=== PATIENT | male | born 2000 | race Caucasian/White ===

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

== ENCOUNTER 2018-11-07 17:45 | Emergency (ER) | payer OTHER ==
[~2018-11-07] VITALS: Ht 177.8 cm; Wt 68.0 kg
[~2018-11-07 17:45] MED LIST: DIVALPROEX SOD500 M1 PO; OLANZAPINE15 MG PO; SERTRALINE HCL25 MG PO; TRAZODONE HCL50 MG PO
--- OUTSIDE RECORDS SUMMARY | 2018-11-07 17:48 | XMS ---
PreManage Notification: MATHEUS WRIGHT Security Office Automation Technician Events No recent Security Events currently on file CRITERIA MET - Group Notification CARE PROVIDERS EMILE HALL Primary Care Current PHONE: Unknown Jeanie has no Care Guidelines for this patient. EMine VISIT COUNT (12 MO.) 2 [facility] TOTAL 2 NOTE: Visits indicate total known visits. ED/UCC VISIT TRACKING (12 MO.) 11/07/2018 17:45 [facility] [place] TYPE: Emergency COMPLAINT: - MEDICAL CLEARANCE 06/15/2018 09:31 [facility] [place] TYPE: Emergency COMPLAINT: - NAUSEA DIAGNOSES: - Nausea INPATIENT VISIT TRACKING (12 MO.) No inpatient visits to display in this time frame [id number]
== END 2018-11-07 22:32 | disposition home or self-care (01) ==
LOC: ED 17:45
DX: T14.91XA Suicide attempt, initial encounter (principal); F17.200 Nicotine dependence, unspecified, uncomplicated; Z90.49 Acquired absence of other specified parts of digestive tract; Z88.0 Allergy status to penicillin; Z79.899 Other long term (current) drug therapy
CPT/HCPCS: 36415; 80053; 80176; 81001; 84443; 85025; 99284; G0480

== ENCOUNTER 2018-11-13 14:22 | Emergency (ER) | payer OTHER ==
[~2018-11-13] VITALS: Ht 177.8 cm; Wt 68.0 kg
--- OUTSIDE RECORDS SUMMARY | 2018-11-13 14:26 | XMS ---
PreManage Notification: MATHEUS WRIGHT Security Collections Analyst Events No recent Security Events currently on file CRITERIA MET - Group Notification - [facility] - Has Care Guidelines - [facility] - 2 Visits in 30 Days CARE PROVIDERS EMILE HALL Primary Care Current PHONE: Unknown Jeanie has no Care Guidelines for this patient. Care History Medical/Surgical 11/10/2018 [facility] - CHW UNABLE TO CONTACT PATIENT- NO PCP - CHW SENT NO PCP LETTER TO PATIENT. - PLEASE CONTACT CHW AT [phone] IF PATIENT IS SEEN IN THE ED DURING BUSINESS HOURS. IF CHW IS AVAILABLE, CHW WILL MEET WITH PATIENT IN THE ED. E.D. VISIT COUNT (12 MO.) 3 [facility] TOTAL 3 NOTE: Visits indicate total known visits. ED/UCC VISIT TRACKING (12 MO.) 11/13/2018 14:23 [facility] [place] TYPE: Emergency COMPLAINT: - MEDICAL CLEARANCE 11/07/2018 17:45 [facility] [place] TYPE: Emergency COMPLAINT: - MEDICAL CLEARANCE DIAGNOSES: - Suicide attempt, initial encounter - Allergy status to penicillin - Acquired absence of other specified parts of digestive tract - Nicotine dependence, unspecified, uncomplicated - Suicidal ideations - Other assisted (current) drug therapy 06/15/2018 09:31 [facility] [place] TYPE: Emergency COMPLAINT: - NAUSEA DIAGNOSES: - Nausea INPATIENT VISIT TRACKING (12 MO.) No inpatient visits to display in this time frame [id number]
== END 2018-11-13 18:05 | disposition home or self-care (01) ==
LOC: ED 14:22
DX: F32.9 Major depressive disorder, single episode, unspecified (principal); Z90.49 Acquired absence of other specified parts of digestive tract; Z88.0 Allergy status to penicillin
CPT/HCPCS: 80053; 80176; 81001; 85025; 99284; G0480

== ENCOUNTER 2019-01-22 12:40 | Emergency (ER) | payer OTHER ==
[~2019-01-22] VITALS: Ht 177.8 cm; Wt 68.0 kg
--- OUTSIDE RECORDS SUMMARY | 2019-01-22 12:44 | XMS ---
PreManage Notification: MATHEUS WRIGHT Security Railway Switch Operator Events No recent Security Events currently on file CRITERIA MET - Group Notification - [facility] - Has Care Guidelines CARE PROVIDERS EMILE HALL Primary Care Current PHONE: Unknown Jeanie has no Care Guidelines for this patient. Care History Medical/Surgical 11/10/[address] [facility] - CHW UNABLE TO CONTACT PATIENT- NO PCP - CHW SENT NO PCP LETTER TO PATIENT. - PLEASE CONTACT CHW AT [phone] IF PATIENT IS SEEN IN THE ED DURING BUSINESS HOURS. IF CHW IS AVAILABLE, CHW WILL MEET WITH PATIENT IN THE ED. E.D. VISIT COUNT (12 MO.) 4 [facility] TOTAL 4 NOTE: Visits indicate total known visits. ED/UCC VISIT TRACKING (12 MO.) 01/22/2019 12:42 [facility] [place] TYPE: Emergency COMPLAINT: - VOMINTING,BLOOD IN STOOL 11/13/2018 14:23 [facility] [place] TYPE: Emergency COMPLAINT: - MEDICAL CLEARANCE DIAGNOSES: - Acquired absence of other specified parts of digestive tract - Allergy status to penicillin - Major depressive disorder, single episode, unspecified 11/07/2018 17:45 [facility] [place] TYPE: Emergency COMPLAINT: - MEDICAL CLEARANCE DIAGNOSES: - Suicide attempt, initial encounter - Allergy status to penicillin - Acquired absence of other specified parts of digestive tract - Nicotine dependence, unspecified, uncomplicated - Suicidal ideations - 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
[2019-01-22] MEDS ORDERED: PROMETHAZINE HC25 M1 PO (13:15)
== END 2019-01-22 13:22 | disposition home or self-care (01) ==
LOC: ED 12:40
DX: K62.5 Hemorrhage of anus and rectum (principal); F17.200 Nicotine dependence, unspecified, uncomplicated; Z90.49 Acquired absence of other specified parts of digestive tract; Z88.0 Allergy status to penicillin
CPT/HCPCS: 99284

== ENCOUNTER → 2019-02-17 | Emergency (ER) | payer OTHER ==
[~2019-02-17] VITALS: Ht 177.8 cm; Wt 68.0 kg
[~2019-02-17] MED LIST changes: +PROMETHAZINE HC25 M1 PO
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
== END ==
LOC: ED 16:08
DX: Z00.8 Encounter for other general examination (principal); F17.200 Nicotine dependence, unspecified, uncomplicated; Z90.49 Acquired absence of other specified parts of digestive tract; Z88.0 Allergy status to penicillin
CPT/HCPCS: 80053; 80176; 81001; 84443; 85025; 99283; G0480

== ENCOUNTER 2019-02-26 12:43 | Emergency (ER) | payer OTHER ==
[~2019-02-26] VITALS: Ht 177.8 cm; Wt 68.0 kg
--- OUTSIDE RECORDS SUMMARY | 2019-02-26 12:46 | XMS ---
PreManage Notification: MATHEUS WRIGHT Security Well Logging Mud Analysis Captain Events No recent Security Events currently on file CRITERIA MET - Group Notification - 6 ED Visits in 6 Months - [facility] - Has Care Guidelines - [facility] - 2 Visits in 30 Days CARE PROVIDERS EMILE HALL Primary Care Current PHONE: Unknown Guidelines Source: [facility] Guidelines Date: 01/22/2019 Care Coordination: Has engaged in mental health services with [facility].\T\nbsp; Please contact [facility] for mental health concerns.\T\nbsp; [facility] \T\nbsp; [place]: [phone]. Care History Medical/Surgical 11/10/2018 [facility] - CHW UNABLE TO CONTACT PATIENT- NO PCP - CHW SENT NO PCP LETTER TO PATIENT. - PLEASE CONTACT CHW AT [phone] IF PATIENT IS SEEN IN THE ED DURING BUSINESS HOURS. IF CHW IS AVAILABLE, CHW WILL MEET WITH PATIENT IN THE ED. E.D. VISIT COUNT (12 MO.) [address] [facility] TOTAL 8 NOTE: Visits indicate total known visits. ED/UCC VISIT TRACKING (12 MO.) 02/26/2019 12:43 [facility] [place] TYPE: Emergency COMPLAINT: - POSS DEHYDRATION 02/17/2019 16:08 [facility] [place] TYPE: Emergency COMPLAINT: - MEDICAL CLEARANCE DIAGNOSES: - Allergy status to penicillin - Nicotine dependence, unspecified, uncomplicated - Encounter for other general examination - Encounter for other general examination - Acquired absence of other specified parts of digestive tract - Encounter for general psychiatric examination, requested by authority 01/29/2019 11:48 [facility] [place] TYPE: Emergency [...] unspecified, uncomplicated - Suicidal ideations - 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
== END 2019-02-26 16:22 | disposition home or self-care (01) ==
LOC: ED 12:43
DX: E86.0 Dehydration (principal); F17.200 Nicotine dependence, unspecified, uncomplicated; Z88.0 Allergy status to penicillin
CPT/HCPCS: 99283

== ENCOUNTER 2019-08-24 23:22 | Emergency (ER) | payer OTHER ==
[~2019-08-24] VITALS: Ht 177.8 cm; Wt 70.3 kg
--- OUTSIDE RECORDS SUMMARY | 2019-08-24 23:26 | XMS ---
PreManage Notification: MATHEUS WRIGHT Security Reactor Technician Events No recent Security Events currently on file CRITERIA MET - Group Notification - [facility] - Has Care Guidelines CARE PROVIDERS EMILE HALL Primary Care Current PHONE: Unknown Guidelines Source: [facility] Guidelines Date: 01/22/2019 Care Coordination: Has engaged in mental health services with [facility].\T\nbsp; Please contact [facility] for mental health concerns.\T\nbs; Navdeep/Arnold Rubalcava: \T\nbsp; [place]: [phone]. Care History Medical/Surgical 11/10/2018 [facility] - CHW UNABLE TO CONTACT PATIENT- NO PCP - CHW SENT NO PCP LETTER TO PATIENT. - PLEASE CONTACT CHW AT [phone] IF PATIENT IS SEEN IN THE ED DURING BUSINESS HOURS. IF CHW IS AVAILABLE, CHW WILL MEET WITH PATIENT IN THE ED. E.D. VISIT COUNT (12 MO.) 8 [facility] TOTAL 8 NOTE: Visits indicate total known visits. ED/UCC VISIT TRACKING (12 MO.) 08/24/2019 23:23 [facility] [place] TYPE: Emergency COMPLAINT: - COLD/FLU SYMPTOMS 02/26/2019 12:43 [facility] [place] TYPE: Emergency COMPLAINT: - POSS DEHYDRATION DIAGNOSES: - Nicotine dependence, unspecified, uncomplicated - Allergy status to penicillin - Dehydration 02/17/2019 16:08 [facility] [place] TYPE: Emergency COMPLAINT: - MEDICAL CLEARANCE DIAGNOSES: - Allergy status to penicillin - Nicotine dependence, unspecified, uncomplicated - Encounter for other general examination - Encounter for other general examination - Acquired absence of other specified parts of digestive tract - Encntr for general psychiatric exam, requested by authority 01/29/2019 11:48 [facility] [place] [...] unspecified, uncomplicated - Suicidal ideations - Other custodial (current) drug therapy INPATIENT VISIT TRACKING (12 MO.) No inpatient visits to display in this time frame [id number]
== END 2019-08-25 00:25 | disposition home or self-care (01) ==
LOC: ED 23:22
DX: J98.8 Other specified respiratory disorders (principal); B97.89 Other viral agents as the cause of diseases classified elsewhere; F17.200 Nicotine dependence, unspecified, uncomplicated; Z88.0 Allergy status to penicillin
CPT/HCPCS: 71046; 99284-25

== ENCOUNTER 2020-05-11 18:50 | Emergency (ER) | payer OTHER ==
[~2020-05-11] VITALS: Ht 177.8 cm; Wt 72.6 kg
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
== END 2020-05-13 15:43 | disposition home or self-care (01) ==
LOC: ED 18:50
DX: F22 Delusional disorders (principal); F17.200 Nicotine dependence, unspecified, uncomplicated; Z88.0 Allergy status to penicillin
CPT/HCPCS: 80053; 80176; 81001; 84443; 85025; 99284; C9803; G0480; U0003

== ENCOUNTER 2020-07-10 15:08 | Emergency (ER) | payer OTHER ==
[~2020-07-10] VITALS: Ht 177.8 cm; Wt 68.0 kg
== END 2020-07-10 17:02 | disposition home or self-care (01) ==
LOC: ED 15:08
DX: Z02.2 Encounter for examination for admission to residential institution (principal); F20.9 Schizophrenia, unspecified; Z88.0 Allergy status to penicillin
CPT/HCPCS: 99284

== ENCOUNTER 2022-01-16 10:41 | Emergency (ER) | payer OTHER ==
[~2022-01-16] VITALS: Ht 177.8 cm; Wt 86.2 kg
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
[2022-01-16] MEDS ORDERED: RISPERIDONE O0.25 MG PO (11:16)
== END 2022-01-16 12:55 | disposition home or self-care (01) ==
LOC: ED 10:41
DX: K21.9 Gastro-esophageal reflux disease without esophagitis (principal); Z88.0 Allergy status to penicillin; Z79.899 Other long term (current) drug therapy
CPT/HCPCS: 99283

== ENCOUNTER 2022-01-23 12:54 | Emergency (ER) | payer OTHER ==
[~2022-01-23] VITALS: Ht 177.8 cm; Wt 86.2 kg
[~2022-01-23 12:54] MED LIST changes: +RISPERIDONE O0.25 MG PO
[2022-01-23] MEDS ORDERED: VISTARIL25 MG PO (13:14)
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
== END 2022-01-23 15:09 | disposition home or self-care (01) ==
LOC: ED 12:54
DX: F15.10 Other stimulant abuse, uncomplicated (principal); Z88.0 Allergy status to penicillin; Z20.822 Contact with and (suspected) exposure to COVID-19
CPT/HCPCS: 99284; A9270-GY; C9803; U0003

== ENCOUNTER 2022-05-04 14:22 | Emergency (ER) | payer OTHER ==
[~2022-05-04] VITALS: Ht 177.8 cm; Wt 86.2 kg
[~2022-05-04 14:22] MED LIST changes: +VISTARIL25 MG PO
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
[2022-05-04] MEDS ORDERED: PROPRANOLOL HCL10 MG PO (14:50)
[2022-05-04] MEDS ORDERED: TRAZODONE HCL100 MG PO (14:51)
[2022-05-04] MEDS ORDERED: RISPERIDONE M TA PO (14:51)
[2022-05-04] MEDS ORDERED: OLANZAPINE20 MG PO (14:51)
== END 2022-05-07 17:11 | disposition short-term general hospital (02) ==
LOC: ED 14:22
DX: R45.851 Suicidal ideations (principal); Z88.0 Allergy status to penicillin; Z79.899 Other long term (current) drug therapy; Z20.822 Contact with and (suspected) exposure to COVID-19
CPT/HCPCS: 36415; 80053; 81001; 84443; 85025; 87502; 99285; G0480; U0003

== ENCOUNTER 2022-06-19 13:25 | Emergency (ER) | payer OTHER ==
[~2022-06-19] VITALS: Ht 177.8 cm; Wt 81.7 kg
[~2022-06-19 13:25] MED LIST changes: +OLANZAPINE20 MG PO; +PROPRANOLOL HCL10 MG PO; +RISPERIDONE M TA PO; +TRAZODONE HCL100 MG PO
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
== END 2022-06-20 21:00 ==
LOC: ED 13:25
DX: F29 Unspecified psychosis not due to a substance or known physiological condition (principal); K62.5 Hemorrhage of anus and rectum; Z88.0 Allergy status to penicillin; Z20.822 Contact with and (suspected) exposure to COVID-19
CPT/HCPCS: 36415; 80053; 84443; 85025; 87502; 99285; C9803; G0480; U0003

== ENCOUNTER 2022-09-25 18:17 | Emergency (ER) | payer OTHER ==
[~2022-09-25] VITALS: Ht 177.8 cm; Wt 87.4 kg
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
[2022-09-25] MEDS ORDERED: SINGULAIR10 MG PO (19:22)
[2022-09-25] MEDS ORDERED: TRAZODONE HCL150 MG PO (19:22)
[2022-09-25] MEDS ORDERED: LITHIUM CARBON450 MG PO (19:23)
[2022-09-25] MEDS ORDERED: ZYPREXA15 MG PO (19:23)
[2022-09-25] MEDS ORDERED: OMEPRAZOLE20 MG PO (19:24)
[2022-09-25] MEDS ORDERED: VISTARIL50 MG PO (19:25)
== END 2022-09-27 07:02 ==
LOC: ED 18:17
DX: F20.9 Schizophrenia, unspecified (principal); R45.851 Suicidal ideations; F19.10 Other psychoactive substance abuse, uncomplicated; Z20.822 Contact with and (suspected) exposure to COVID-19; Z88.0 Allergy status to penicillin; Z79.899 Other long term (current) drug therapy
CPT/HCPCS: 36415; 80053; 80178; 81003; 84443; 85025; 99285; G0480; U0003

== ENCOUNTER 2022-11-08 16:40 | Emergency (ER) | payer OTHER ==
[~2022-11-08] VITALS: Ht 177.8 cm; Wt 87.4 kg
[~2022-11-08 16:40] MED LIST changes: +LITHIUM CARBON450 MG PO; +OMEPRAZOLE20 MG PO; +SINGULAIR10 MG PO; +TRAZODONE HCL150 MG PO; +VISTARIL50 MG PO; +ZYPREXA15 MG PO
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
[2022-11-08] MEDS ORDERED: OLANZAPINE10 MG PO (17:09)
[2022-11-08] MEDS ORDERED: OLANZAPINE20 MG PO (17:10)
== END 2022-11-13 13:47 | disposition home or self-care (01) ==
LOC: ED 16:40
DX: U07.1 COVID-19 (principal); R45.851 Suicidal ideations; E87.6 Hypokalemia; Z88.0 Allergy status to penicillin; Z79.899 Other long term (current) drug therapy
CPT/HCPCS: 36415; 80048; 80053; 81003; 84443; 85025; 87502; 96372; 99285; A9270; C9803; G0480; J1200; J1630; J2060; U0003

== ENCOUNTER 2022-11-19 08:08 | Emergency (ER) | payer OTHER ==
[~2022-11-19] VITALS: Ht 177.8 cm; Wt 87.4 kg
[~2022-11-19 08:08] MED LIST changes: +OLANZAPINE10 MG PO
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
--- NOTE | 2022-11-20 12:20 | NUR ---
PATIENT RESTNIG IN BED, ER MGRonnie MCCOY IN ROOM TO NOTIFY PATIENT OF HIS DISCHARGE. PATIENT ASKED IF HWAS BEING "PLACED" DARIUS STATED "NO, YOU'RE GOING HOME." AT THS POINT, PATIENT BEGAN RAMBLING AND ACCUSING DARIUS OF INSINUATING/SAYING UNTRUE THINGS. DARIUS BEGAN TO SPEAK, PATIENT STOOD AND BEGAND YELLING AND CURSING. "SHUT THE FUCK UP, DUDE, GET OUT OF MY ROOM" "YOU JUST WANT TO THROW ME OUT IN THE COLD." DARIUS CONTINUED TO DEESCALATE THE SITUATION, WITH NO REPONSE FROM PATIENT. AT THIS TIME, SECURITY(MELVIN) AND DR LOPEZ WERE AT THE DOORWAY FOR ASSISTANCE. MELVIN DIRECTING PATIENT TO SIT ON BED AND PUT PERSONAL CLOTHING ON. PATIENT CONTINUED TO CUSS AT AND THREATEN DARIUS. "YOU BETTER HOPE I NEVER SEE YOU ON THE STREET, OR FIND OUT WHAT YOU DRIVE" KARRI RAUSCH AT DOORWAY ATTEMPTING TO SPEAK TO PATIENT, PATIENT'S REPONSE WAS "SHUT THE FUCK UP, BITCH!" PATIENT ALSO STATED " I HOPE I SPEND THE REST OF MY LIFE IN [place], SO I CAN TELL THEM WHAT YOU GUYS HAVE DONE TO ME." PATIENT CONTINED TO ESCALATE AND THREATEN, CODE SANDOVAL WAS CALLED OVER HEAD AND JASSI POLICE WERE ALSO CALLED.
== END 2022-11-20 12:20 | disposition home or self-care (01) ==
LOC: ED 08:08
DX: F20.9 Schizophrenia, unspecified (principal); F15.10 Other stimulant abuse, uncomplicated; Z88.0 Allergy status to penicillin; Z79.899 Other long term (current) drug therapy; Z20.822 Contact with and (suspected) exposure to COVID-19
CPT/HCPCS: 36415; 80053; 80178; 84443; 85025; 87502; 99284; A9270; C9803; G0480; U0003

== ENCOUNTER 2023-02-06 08:34 | Emergency (ER) | payer OTHER ==
[~2023-02-06] VITALS: Ht 177.8 cm; Wt 87.1 kg
--- OUTSIDE RECORDS SUMMARY | 2023-02-06 10:55 | XMS ---
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 - PLEASE CONTACT CHW AT [phone] IF PATIENT IS SEEN IN THE ED DURING BUSINESS HOURS. IF CHW IS AVAILABLE, CHW WILL MEET WITH PATIENT IN THE ED. E.D. VISIT COUNT (12 MO.) [address] [place], [place] [address] [address] [place] [address] [facility] [place] TOTAL 19 NOTE: Visits indicate total known visits. ED/UCC VISIT TRACKING (12 MO.) 02/06/2023 08:34 [place] [place]: Emergency COMPLAINT: - MEDICAL CLEARANCE [facility]21[facility]23 09[facility] DIAGNOSES: - Mental disorder, not otherwise specified - Overdose (Intentional) - suicidal - Suicide Attempt 01/14/2023 14:06 [facility] DIAGNOSES: - Acute pharyngitis, unspecified - sore throat 01/07/2023 07:06 [facility] [place] TYPE: Emergency DIAGNOSES: - Anxiety disorder, unspecified - Insomnia, unspecified - insomnia SOB - Shortness of Breath 12/17/2022 10:22 [facility] DIAGNOSES: - back pain 12/11/2022 14:46 [facility] DIAGNOSES: - Encounter for blood-alcohol and blood-drug test - Labs Only - urine test 12/09/2022 17:31 [facility] DIAGNOSES: - Cough, unspecified - poss Covid exposure - Shortness of Breath 12/04/2022 16:03 [facility] DIAGNOSES: - Acute pharyngitis, unspecified - Fever (9 Weeks To 74 Years) - sore throat 11/30/2022 16:43 [facility] DIAGNOSES: - Low back pain, unspecified - back inj - Back Injury 11/28/2022 11:36 [facility] DIAGNOSES: - Encounter for general adult medical examination without abnormal findings - Abdominal Pain - Blood In Stool - nausea,dehydrated 11/23/2022 07:43 [facility] [place] TYPE: Emergency DIAGNOSES: - Encounter for issue of repeat prescription - med refill - Medication Refill 11/19/2022 08:09 [facility] [place] TYPE: Emergency COMPLAINT: - MEDICAL CLEARANCE DIAGNOSES: - Allergy status to penicillin - Contact with and (suspected) exposure to COVID-19 - 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 - Other stimulant abuse, uncomplicated - Schizophrenia, unspecified - Suicidal ideations 11/08/2022 16:40 [facility] [place] TYPE: Emergency COMPLAINT: - MEDICAL CLEARANCE DIAGNOSES: - Allergy status to penicillin - COVID-19 - Hypokalemia - 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 - Suicidal ideations 09/25/2022 18:17 [facility] [place] TYPE: Emergency COMPLAINT: - SUICIDAL IDEATIONS DIAGNOSES: - Allergy status to penicillin - Contact with and (suspected) exposure to COVID-19 - 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 - Other psychoactive substance abuse, uncomplicated - Schizophrenia, unspecified - Suicidal ideations 06/19/2022 13:26 [facility] [place] TYPE: Emergency COMPLAINT: - RECTAL BLEEDING DIAGNOSES: - Allergy status to penicillin - Contact with and (suspected) exposure to COVID-19 - Hemorrhage of anus and rectum - Unspecified psychosis not due to a substance or known physiological condition 06/12/2022 14:11 [facility] [place] TYPE: Emergency COMPLAINT: - MEDICAL CLEARANCE DIAGNOSES: - Allergy status to penicillin - Contact with and (suspected) exposure to COVID-19 - Other psychoactive substance abuse, uncomplicated - Suicidal ideations 05/29/2022 20:35 [facility] TYPE: Emergency DIAGNOSES: - Auditory hallucinations - Suicidal ideations - cahoots - Suicidal 05/04/2022 14:22 [facility] [place] TYPE: Emergency COMPLAINT: - MEDICAL CLEARANCE DIAGNOSES: - Allergy status to penicillin - Contact with and (suspected) exposure to COVID-19 - Other prison (current) drug therapy - Suicidal ideations 03/25/2022 15:04 [facility] [place] TYPE: Emergency COMPLAINT: - ABDOMINAL PAIN DIAGNOSES: - Allergy status to penicillin - Contact with and (suspected) exposure to COVID-19 - Other stimulant use, 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 [place] TYPE: Psychiatric Services DIAGNOSES: 0. Major depressive disorder, recurrent severe without psychotic features 1. Major depressive disorder, recurrent severe without psychotic features 2. Other seasonal allergic rhinitis 2. Personal history of suicidal behavior 2. Pervasive developmental disorder, unspecified 2. Suicidal ideations 2. Unsheltered homelessness 05/30/2022 19:47 [facility] [place] TYPE: Psychiatric Services DIAGNOSES: 0. Schizoaffective disorder, depressive type 1. Schizoaffective disorder, bipolar type 2. Alcohol dependence, uncomplicated 2. Cannabis abuse, uncomplicated 2. Dorsalgia, unspecified 2. Gastro-esophageal reflux disease without esophagitis 2. Homelessness unspecified 2. Homicidal ideations 2. Nicotine dependence, cigarettes, uncomplicated 2. Other stimulant dependence, uncomplicated 2. Suicidal ideations 2. Unspecified asthma, uncomplicated 05/07/2022 20:15 [facility] [place] TYPE: Psychiatric Services DIAGNOSES: 0. Schizoaffective disorder, depressive type 0. Unspecified psychosis not due to a substance or known physiological condition 1. Unspecified psychosis not due to a substance or known physiological condition 2. Cannabis dependence, uncomplicated 2. Constipation, unspecified 2. Gastro-esophageal reflux disease without esophagitis 2. Nicotine dependence, cigarettes, uncomplicated 2. Other stimulant dependence, uncomplicated 2. Suicidal ideations 2. Unspecified asthma, uncomplicated 03/26/2022 18:37 [facility] [place] TYPE: Psychiatric Services DIAGNOSES: 0. Unspecified psychosis not due to a substance or known physiological condition 1. Unspecified psychosis not due to a substance or known physiological condition 2. Cannabis dependence, uncomplicated 2. Dorsalgia, unspecified 2. Homelessness unspecified 2. Nicotine dependence, cigarettes, uncomplicated 2. Other stimulant dependence, uncomplicated 2. Schizophrenia, unspecified [email or web address]
[2023-02-07 10:07] VITALS: BP 128/57
== END 2023-02-07 10:08 | disposition home or self-care (01) ==
LOC: ED 08:34
DX: R45.851 Suicidal ideations (principal); F15.90 Other stimulant use, unspecified, uncomplicated; F12.90 Cannabis use, unspecified, uncomplicated; Z88.0 Allergy status to penicillin; Z79.899 Other long term (current) drug therapy
CPT/HCPCS: 36415; 80053; 80178; 84443; 85025; G0480

== ENCOUNTER 2023-02-09 12:59 | Emergency (ER) | payer OTHER ==
[~2023-02-09] VITALS: Ht 177.8 cm; Wt 87.4 kg
--- OUTSIDE RECORDS SUMMARY | 2023-02-09 13:06 | XMS ---
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 - PLEASE CONTACT CHW AT [phone] IF PATIENT IS SEEN IN THE ED DURING BUSINESS HOURS. IF CHW IS AVAILABLE, CHW WILL MEET WITH PATIENT IN THE ED. E.D. VISIT COUNT (12 MO.) [address] [place], [place] [address]Neftali 1 [facility] 9 L[place] [place] TOTAL 20 NOTE: Visits indicate total known visits. ED/UCC VISIT TRACKING (12 MO.) 02/09/2023 12:59 [place] TYPE: Emergency COMPLAINT: - MEDICAL CLEARNACE 02/06/2023 08:34 [place] [place] TYPE: Emergency COMPLAINT: - MEDICAL CLEARANCE DIAGNOSES: - Allergy status to penicillin - Cannabis use, unspecified, uncomplicated - Other oil heaterman (current) drug therapy - Other stimulant use, unspecified, uncomplicated - Suicidal ideations 01/21/2023 09:36 [facility] [place] TYPE: Emergency DIAGNOSES: - Mental disorder, not otherwise specified - Overdose (Intentional) - suicidal - Suicide Attempt 01/14/2023 14:06 [facility] [place] TYPE: Emergency DIAGNOSES: - Acute pharyngitis, unspecified - sore throat 01/07/2023 07:06 [facility] [place] TYPE: Emergency DIAGNOSES: - Anxiety disorder, unspecified - Insomnia, unspecified - insomnia SOB - Shortness of Breath 12/17/2022 10:22 [facility] [place] TYPE: Emergency DIAGNOSES: - back pain 12/11/2022 14:46 [facility] [place] TYPE: Emergency DIAGNOSES: - Encounter for blood-alcohol and blood-drug test - Labs Only - urine test 12/09/2022 17:31 [facility] [place] TYPE: Emergency DIAGNOSES: - Cough, unspecified - poss Covid exposure - Shortness of Breath 12/04/2022 16:03 [facility] [place] TYPE: Emergency DIAGNOSES: - Acute pharyngitis, unspecified - Fever (9 Weeks To 74 Years) - sore throat 11/30/2022 16:43 [facility] [place] TYPE: Emergency DIAGNOSES: - Low back pain, unspecified - back inj - Back Injury 11/28/2022 11:36 [facility] [place] TYPE: Emergency DIAGNOSES: - Encounter for general adult medical examination without abnormal findings - Abdominal Pain - Blood In Stool - nausea,dehydrated 11/23/2022 07:43 [facility] [place] TYPE: Emergency DIAGNOSES: - Encounter for issue of repeat prescription - med refill - Medication Refill 11/19/2022 08:09 [facility] [place] TYPE: Emergency COMPLAINT: - MEDICAL CLEARANCE DIAGNOSES: - Allergy status to penicillin - Contact with and (suspected) exposure to COVID-19 - Other correction (current) drug therapy - Other stimulant abuse, uncomplicated - Schizophrenia, unspecified - Suicidal ideations 11/08/2022 16:40 [facility] [place] [facility] [place] TYPE: Emergency COMPLAINT: - MEDICAL CLEARANCE DIAGNOSES: - Allergy status to penicillin - COVID-19 - Hypokalemia - Other correction (current) drug therapy - Suicidal ideations 09/25/2022 18:17 [place] TYPE: Emergency COMPLAINT: - SUICIDAL IDEATIONS DIAGNOSES: - Allergy status to penicillin - Contact with and (suspected) exposure to COVID-19 - Other oil heaterman (current) drug therapy - Other psychoactive substance [...] abuse, uncomplicated - Suicidal ideations 05/29/2022 20:35 [facility] TYPE: Emergency DIAGNOSES: - Auditory hallucinations - Suicidal ideations - cahoots - Suicidal 05/04/2022 14:22 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 Major depressive disorder, recurrent severe without psychotic features 1. Major depressive disorder, recurrent severe without psychotic features 2. Other seasonal allergic rhinitis 2. Personal history of suicidal behavior 2. Pervasive developmental disorder, unspecified 2. Suicidal ideations 2. Unsheltered homelessness 05/30/2022 19:47 [facility] [place] TYPE: Psychiatric Services DIAGNOSES: 0. Schizoaffective disorder, depressive type 1. Schizoaffective disorder, bipolar type 2. Alcohol dependence, uncomplicated 2. Cannabis abuse, uncomplicated 2. Dorsalgia, unspecified 2. Gastro-esophageal reflux disease without esophagitis 2. Homelessness unspecified 2. Homicidal ideations 2. Nicotine dependence, cigarettes, uncomplicated 2. Other stimulant dependence, uncomplicated 2. Suicidal ideations 2. Unspecified asthma, uncomplicated 05/07/2022 20:15 [facility] [place] TYPE: Psychiatric Services DIAGNOSES: [...] ideations 2. Unspecified asthma, uncomplicated 03/26/2022 18:37 [facility] [place] TYPE: Psychiatric Services DIAGNOSES: 0. Unspecified psychosis not due to a substance or known physiological condition 1. Unspecified psychosis not due to a substance or known physiological condition 2. Cannabis dependence, uncomplicated 2. Dorsalgia, unspecified 2. Homelessness unspecified 2. Nicotine dependence, cigarettes, uncomplicated 2. Other stimulant dependence, uncomplicated 2. Schizophrenia, unspecified [email or web address]
[2023-02-09 13:28] VITALS: BP 127/66
== END 2023-02-09 13:28 | disposition left against medical advice (07) ==
LOC: ED 12:59
DX: Z76.5 Malingerer [conscious simulation] (principal); Z53.29 Procedure and treatment not carried out because of patient's decision for other reasons; Z88.0 Allergy status to penicillin; Z79.899 Other long term (current) drug therapy
CPT/HCPCS: 99284

== ENCOUNTER 2023-03-28 15:31 | Emergency (ER) | payer OTHER ==
[~2023-03-28] VITALS: Ht 170.2 cm; Wt 97.1 kg
--- OUTSIDE RECORDS SUMMARY | ~2023-03-28 | XMS | Continuity of Care Document ---
Demographics + + + | Address | [address] | | | [place] [address] | + + + | Preferred Language | Unknown | + + + | Marital Status | Never | + + + | Zoroastrianism Affiliation | Unknown | + + + | Race | White | + + + | Ethnic Group | Not or | + + + Author + + + | Author | [facility] | + + + | Organization | [facility] | + + + | Address | [address] | | | [place] [address] | + + + | Phone | | + + + Care Team Providers + + + + | Care Lacquer Mixer Name | Role | Phone | + + + + Unavailable | Unavailable | + + + + Unavailable | Unavailable | + + + + Unavailable | Unavailable | + + + + Unavailable | Unavailable | + + + + Unavailable | Unavailable | + + + + Unavailable | Unavailable | + + + + Allergies and Intolerances + + + + + + | date | description | facility | reaction | severity | + + + + + + | (no date) | Urticaria | [facility] | (no reaction) | (no severity) | | [facility] | | | + + + + + + | (no date) | Penicillin | [facility] | (no reaction) | (no severity) | | | [facility] | | | + + + + + + | (no date) | Penicillin | [facility] | (no reaction) | (no severity) | | | [facility] | | | + + + + + + | (no date) | Penicillins | [facility] | (no reaction) | (no severity) | + + + + + + | (no date) | Penicillin | [facility] | (no reaction) | (no severity) | | | [facility] | | | + + + + + + | (no date) | Penicillin | [facility] | (no reaction) | (no severity) | | | [facility] | | | + + + + + + Encounters No information. Functional Status No information. Immunizations No information. Medications + + + + | date | description | facility | + + + + | 2022-05-07 00:00 | DIVALPROEX SODIUM | [facility] | + + + + | 2022-09-27 00:00 | DIVALPROEX SODIUM | [facility] | + + + + | 2022-11-13 00:00 | DIVALPROEX SODIUM | [facility] | + + + + | 2022-11-20 00:00 | DIVALPROEX SODIUM | [facility] | + + + + | 2023-02-07 00:00 | DIVALPROEX SODIUM | [facility] | + + + + | 2023-02-09 00:00 | DIVALPROEX SODIUM | [facility] | + + + + | 2022-09-27 00:00 | MONTELUKAST SODIUM | [facility] | + + + + | 2022-09-27 00:00 | LITHIUM CARBONATE | [facility] | + + + + | 2022-11-13 00:00 | LITHIUM CARBONATE | [facility] | + + + + | 2022-11-20 00:00 | LITHIUM CARBONATE | [facility] | + + + + | 2023-02-07 00:00 | LITHIUM CARBONATE | [facility] | + + + + | 2023-02-09 00:00 | LITHIUM CARBONATE | [facility] | + + + + | 2022-09-27 00:00 | OMEPRAZOLE | [facility] | + + + + | 2022-11-13 00:00 | OMEPRAZOLE | [facility] | + + + + | 2022-11-20 00:00 | OMEPRAZOLE | [facility] | + + + + | 2023-02-07 00:00 | OMEPRAZOLE | [facility] | + + + + | 2023-02-09 00:00 | OMEPRAZOLE | [facility] | + + + + | 2022-09-27 00:00 | OLANZAPINE | [facility] | + + + + | 2022-05-07 00:00 | OLANZAPINE | [facility] | + + + + | 2022-11-13 00:00 | OLANZAPINE | [facility] | + + + + | 2022-11-20 00:00 | OLANZAPINE | [facility] | + + + + | 2023-02-07 00:00 | OLANZAPINE | [facility] | + + + + | 2023-02-09 00:00 | OLANZAPINE | [facility] | + + + + | 2022-05-07 00:00 | OLANZAPINE | [facility] | + + + + | 2022-09-27 00:00 | OLANZAPINE | [facility] | + + + + | 2022-11-13 00:00 | OLANZAPINE | [facility] | + + + + | 2022-11-20 00:00 | OLANZAPINE | [facility] | + + + + | 2023-02-07 00:00 | OLANZAPINE | [facility] | + + + + | 2023-02-09 00:00 | OLANZAPINE | [facility] | + + + + | 2022-05-07 00:00 | SERTRALINE HCL | [facility] | + + + + | 2022-09-27 00:00 | SERTRALINE HCL | [facility] | + + + + | 2022-11-13 00:00 | SERTRALINE HCL | [facility] | + + + + | 2022-11-20 00:00 | SERTRALINE HCL | [facility] | + + + + | 2023-02-07 00:00 | SERTRALINE HCL | [facility] | + + + + | 2023-02-09 00:00 | SERTRALINE HCL | [facility] | + + + + | 2022-11-13 00:00 | OLANZAPINE | [facility] | + + + + | 2022-11-20 00:00 | OLANZAPINE | [facility] | + + + + | 2023-02-07 00:00 | OLANZAPINE | [facility] | + + + + | 2023-02-09 00:00 | OLANZAPINE | [facility] | + + + + | 2022-05-07 00:00 | RISPERIDONE | [facility] | + + + + | 2022-09-27 00:00 | TRAZODONE HCL | [facility] | + + + + | 2022-11-13 00:00 | TRAZODONE HCL | [facility] | + + + + | 2022-11-20 00:00 | TRAZODONE HCL | [facility] | + + + + | 2023-02-07 00:00 | TRAZODONE HCL | [facility] | + + + + | 2023-02-09 00:00 | TRAZODONE HCL | [facility] | + + + + | 2022-05-07 00:00 | TRAZODONE HCL | [facility] | + + + + | 2022-05-07 00:00 | TRAZODONE HCL | [facility] | + + + + | 2022-09-27 00:00 | TRAZODONE HCL | [facility] | + + + + | 2022-11-13 00:00 | TRAZODONE HCL | [facility] | + + + + | 2022-11-20 00:00 | TRAZODONE HCL | [facility] | + + + + | 2023-02-07 00:00 | TRAZODONE HCL | [facility] | + + + + | 2023-02-09 00:00 | TRAZODONE HCL | [facility] | + + + + | 2022-05-07 00:00 | PROPRANOLOL HCL | [facility] | + + + + | 2019-01-22 00:00 | PROMETHAZINE HCL | [facility] | + + + + | 2019-01-22 00:00 | PROMETHAZINE HCL | [facility] | + + + + | 2019-01-22 00:00 | PROMETHAZINE HCL | [facility] | + + + + | 2019-01-22 00:00 | PROMETHAZINE HCL | [facility] | + + + + | 2019-01-22 00:00 | PROMETHAZINE HCL | [facility] | + + + + | 2022-09-27 00:00 | HYDROXYZINE PAMOATE | [facility] | + + + + Problems + + + + | date | description | facility | + + + + | 2017-05-20 00:00 | Depression | [facility] | + + + + | 2017-05-20 00:00 | Depression | [facility] | + + + + | 2017-05-20 00:00 | Depression | [facility] | + + + + | 2017-05-20 00:00 | Depression | [facility] | + + + + | 2017-05-20 00:00 | Depression | [facility] | + + + + | 2017-05-20 00:00 | Suicidal ideation | [facility] | + + + + | 2017-05-20 00:00 | Suicidal ideation | [facility] | + + + + | 2017-05-20 00:00 | Suicidal ideation | [facility] | + + + + | 2017-05-20 00:00 | Suicidal ideation | [facility] | + + + + | 2017-05-20 00:00 | Suicidal ideation | [facility] | + + + + | 2018-06-15 00:00 | Encounter for medical | [facility] | | | screening examination | | + + + + | 2018-06-15 00:00 | Encounter for medical | [facility] | | | screening examination | | + + + + | 2018-06-15 00:00 | Encounter for medical | [facility] | | | screening examination | | + + + + | 2018-06-15 00:00 | Encounter for medical | [facility] | | | screening examination | | + + + + | 2018-06-15 00:00 | Encounter for medical | [facility] | | | screening examination | | + + + + | 2018-11-07 00:00 | Attempted suicide | [facility] | + + + + | 2018-11-07 00:00 | Attempted suicide | [facility] | + + + + | 2018-11-07 00:00 | Attempted suicide | [facility] | + + + + | 2018-11-07 00:00 | Attempted suicide | [facility] | + + + + | 2018-11-07 00:00 | Attempted suicide | [facility] | + + + + | 2019-01-29 00:00 | Abdominal pain | [facility] | + + + + | 2019-01-29 00:00 | Abdominal pain | [facility] | + + + + | 2019-01-29 00:00 | Abdominal pain | [facility] | + + + + | 2019-01-29 00:00 | Abdominal pain | [facility] | + + + + | 2019-01-29 00:00 | Abdominal pain | [facility] | + + + + | 2019-02-17 00:00 | Encounter for medical | [facility] | | | clearance for patient hold | | + + + + | 2019-02-17 00:00 | Encounter for medical | [facility] | | | clearance for patient hold | | + + + + | 2019-02-17 00:00 | Encounter for medical | [facility] | | | clearance for patient hold | | + + + + | 2019-02-17 00:00 | Encounter for medical | [facility] | | | clearance for patient hold | | + + + + | 2019-02-17 00:00 | Encounter for medical | [facility] | | | clearance for patient hold | | + + + + | 2019-02-26 00:00 | Dehydration | [facility] | + + + + | 2019-02-26 00:00 | Dehydration | [facility] | + + + + | 2019-02-26 00:00 | Dehydration | [facility] | + + + + | 2019-02-26 00:00 | Dehydration | [facility] | + + + + | 2019-02-26 00:00 | Dehydration | [facility] | + + + + | 2019-08-25 00:00 | Viral respiratory | [facility] | | | infection | | + + + + | 2019-08-25 00:00 | Viral respiratory | [facility] | | | infection | | + + + + | 2019-08-25 00:00 | Viral respiratory | [facility] | | | infection | | + + + + | 2019-08-25 00:00 | Viral respiratory | [facility] | | | infection | | + + + + | 2019-08-25 00:00 | Viral respiratory | [facility] | | | infection | | + + + + | 2022-01-16 00:00 | Gastroesophageal reflux | [facility] | | | disease | | + + + + | 2022-01-16 00:00 | Gastroesophageal reflux | [facility] | | | disease | | + + + + | 2022-01-16 00:00 | Gastroesophageal reflux | [facility] | | | disease | | + + + + | 2022-01-16 00:00 | Gastroesophageal reflux | [facility] | | | disease | | + + + + | 2022-01-16 00:00 | Gastroesophageal reflux | [facility] | | | disease | | + + + + | 2022-01-23 00:00 | Substance abuse | [facility] | + + + + | 2022-01-23 00:00 | Substance abuse | [facility] | + + + + | 2022-01-23 00:00 | Substance abuse | [facility] | + + + + | 2022-01-23 00:00 | Substance abuse | [facility] | + + + + | 2022-01-23 00:00 | Substance abuse | 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 | + + + + | 2022-06-12 00:00 | Polysubstance abuse | [facility] | + + + + | 2022-06-12 00:00 | Polysubstance abuse | [facility] | + + + + | 2022-06-12 00:00 | Polysubstance abuse | [facility] | + + + + | 2022-06-20 00:00 | Psychosis | [facility] | + + + + | 2022-06-20 00:00 | Psychosis | [facility] | + + + + | 2022-06-20 00:00 | Psychosis | [facility] | + + + + | 2022-06-20 00:00 | Psychosis | [facility] | + + + + | 2022-11-08 00:00 | Hypokalemia | [facility] | + + + + | 2022-11-08 00:00 | Hypokalemia | [facility] | + + + + | 2022-11-08 00:00 | Hypokalemia | [facility] | + + + + | 2022-11-08 00:00 | Hypokalemia | [facility] | + + + + | 2022-11-10 00:00 | Infection due to severe | [facility] | | | acute respiratory syndrome | | | | coronavirus 2 (SARS-CoV-2) | | + + + + | 2022-11-10 00:00 | Infection due to severe | [facility] | | | acute respiratory syndrome | | | | coronavirus 2 (SARS-CoV-2) | | + + + + | 2022-11-10 00:00 | Infection due to severe | [facility] | | | acute respiratory syndrome | | | | coronavirus 2 (SARS-CoV-2) | | + + + + | 2022-11-10 00:00 | Infection due to severe | [facility] | | | acute respiratory syndrome | | | | coronavirus 2 (SARS-CoV-2) | | + + + + | 2022-11-19 00:00 | Schizophrenia | [facility] | + + + + | 2022-11-19 00:00 | Schizophrenia | [facility] | + + + + | 2022-11-19 00:00 | Schizophrenia | [facility] | + + + + | 2022-11-20 00:00 | Methamphetamine abuse | [facility] | + + + + | 2022-11-20 00:00 | Methamphetamine abuse | [facility] | + + + + | 2022-11-20 00:00 | Methamphetamine abuse | [facility] | + + + + | 2023-02-06 08:34 | CANNABIS USE, UNSPECIFIED, | [facility] | | | UNCOMPLICATED | | + + + + | 2023-02-06 08:34 | OTHER STIMULANT USE, | [facility] | | | UNSPECIFIED, UNCOMPLICATED | | + + + + | 2023-02-06 08:34 | SUICIDAL IDEATIONS | [facility] | + + + + | 2023-02-06 08:34 | OTHER FPC (CURRENT) | [facility] | | | DRUG THERAPY | | + + + + | 2023-02-06 08:34 | ALLERGY STATUS TO | [facility] | | | [facility]EN[facility] | | + + + + | 2023-02-07 00:00 | Drug use | [facility] | + + + + | 2023-02-07 00:00 | Drug use | [facility] | + + + + | 2023-02-09 00:00 | Malingering | [facility] | + + + + | 2023-02-09 00:00 | Malingering | [facility] | + + + + | 2023-02-09 12:59 | UNSPECIFIED ABDOMINAL PAIN | [facility] | | | | | + + + + | 2023-02-09 12:59 | PROC/TRTMT NOT CRD OUT BEC | [facility] | | | PT DECISION FOR OTH LUIS | | + + + + | 2023-02-09 12:59 | MALINGERER [CONSCIOUS | [facility] | | | SIMULATION] | | + + + + | 2023-02-09 12:59 | OTHER INDUSTRIAL ENGINEERING (CURRENT) | [facility] | | | DRUG THERAPY | | + + + + | 2023-02-09 12:59 | ALLERGY STATUS TO | [facility] | | | [facility] | | + + + + | 2023-03-22 00:00 | Neck pain | [facility] | + + + + | 2023-03-22 19:47 | SCHIZOPHRENIA, UNSPECIFIED | [facility] | | | | | + + + + | 2023-03-22 19:47 | CERVICALGIA | [facility] | + + + + | 2023-03-22 19:47 | ALLERGY STATUS TO | [facility] | | | [facility]ENICILL[facility] | | + + + + Procedures No information. Results/Labs +--------+--------+ +---------+--------+---------+ | test | date | facility | value | unit | notes | +--------+--------+ +---------+--------+---------+ + + | Result panel 1 | + + + + + +-------+ + + | | 2022-03-25 | [facility] | 9.4 | (missing) | (missing) | | (unavailable | 19:08 | [facility] | | | | + + + +-------+ + + + + | Result panel 2 | + + + + + +--------+ + + | | 2022-03-25 | [facility] | 5.13 | (missing) | (missing) | | (unavailable | 19:08 | [facility] | | | | + + + +--------+ + + + + | Result panel 3 | + + + + + +--------+ + + | | 2022-03-25 | [facility] | 14.7 | (missing) | (missing) | | (unavailable | 19:08 | [facility] | | | | + + + +--------+ + + + + | Result panel 4 | + + + + + +--------+ + + | | 2022-03-25 | [facility] | 41.1 | (missing) | (missing) | | (unavailable | 19:08 | [facility] | | | | + + + +--------+ + + + + | Result panel 5 | + + + + + +--------+ + + | | 2022-03-25 | [facility] | 80.1 | (missing) | (missing) | | (unavailable | 19:08 | [facility] | | | | + + + +--------+ + + + + | Result panel 6 | + + + + + +--------+ + + | | 2022-03-25 | [facility] | 28.8 | (missing) | (missing) | | (unavailable | 19:08 | [facility] | | | | + + + +--------+ + + + + | Result panel 7 | + + + + + +--------+ + + | | 2022-03-25 | [facility] | 35.9 | (missing) | (missing) | | (unavailable | 19:08 | [facility] | | | | + + + +--------+ + + + + | Result panel 8 | + + + + + +--------+ + + | | 2022-03-25 | [facility] | 13.7 | (missing) | (missing) | | (unavailable | 19:08 | [facility] | | | | + + + +--------+ + + + + | Result panel 9 | + + + + + +-------+ + + | | 2022-03-25 | [facility] | 207 | (missing) | (missing) | | (unavailable | 19:08 | [facility] | | | | + + + +-------+ + + + + | Result panel 10 | + + + + + +--------+ + + | | 2022-03-25 | [facility] | 63.6 | (missing) | (missing) | | (unavailable | 19:08 | [facility] | | | | + + + +--------+ + + + + | Result panel 11 | + + + + + +--------+ + + | | 2022-03-25 | [facility] | 21.8 | (missing) | (missing) | | (unavailable | 19:08 | [facility] | | | | + + + +--------+ + + + + | Result panel 12 | + + + + + +--------+ + + | | 2022-03-25 | [facility] | 13.9 | (missing) | (missing) | | (unavailable | 19:08 | [facility] | | | | + + + +--------+ + + + + | Result panel 13 | + + + + + +-------+ + + | | 2022-03-25 | [facility] | 0.1 | (missing) | (missing) | | (unavailable | 19:08 | [facility] | | | | + + + +-------+ + + + + | Result panel 14 | + + + + + +-------+ + + | | 2022-03-25 | [facility] | 0.6 | (missing) | (missing) | | (unavailable | 19:08 | [facility] | | | | + + + +-------+ + + + + | Result panel 15 | + + + + + +------+---------+ + | | 2022-03-25 | [facility] | 82 | mg/dL | (missing) | | (unavailable | 19:08 | [facility] | | | | + + + +------+---------+ + + + | Result panel 16 | + + + + + +------+---------+ + | | 2022-03-25 | [facility] | 15 | mg/dL | (missing) | | (unavailable | 19:08 | [facility] | | | | + + + +------+---------+ + + + | Result panel 17 | + + + + + +--------+---------+ + | | 2022-03-25 | [facility] | 0.81 | mg/dL | (missing) | | (unavailable | 19:08 | [facility] | | | | + + + +--------+---------+ + + + | Result panel 18 | + + + + + +-------+ + + | | 2022-03-25 | [facility] | 127 | (missing) | (missing) | | (unavailable | 19:08 | [facility] | | | | + + + +-------+ + + + + | Result panel 19 | + + + + + +---------+ + + | | 2022-03-25 | [facility] | 18.51 | (missing) | (missing) | | (unavailable | 19:08 | [facility] | | | | + + + +---------+ + + + + | Result panel 20 | + + + + + +-------+ + + | | 2022-03-25 | [facility] | 134 | (missing) | (missing) | | (unavailable | 19:08 | [facility] | | | | + + + +-------+ + + + + | Result panel 21 | + + + + + +-------+ + + | | 2022-03-25 | [facility] | 3.3 | (missing) | (missing) | | (unavailable | 19:08 | [facility] | | | | + + + +-------+ + + + + | Result panel 22 | + + + + + +------+ + + | | 2022-03-25 | [facility] | 95 | (missing) | (missing) | | (unavailable | 19:08 | [facility] | | | | + + + +------+ + + + + | Result panel 23 | + + + + + +------+ + + | | 2022-03-25 | [facility] | 24 | (missing) | (missing) | | (unavailable | 19:08 | [facility] | | | | + + + +------+ + + + + | Result panel 24 | + + + + + +--------+ + + | | 2022-03-25 | [facility] | 18.3 | (missing) | (missing) | | (unavailable | 19:08 | [facility] | | | | + + + +--------+ + + + + | Result panel 25 | + + + + + +-------+---------+ + | | 2022-03-25 | [facility] | 8.8 | mg/dL | (missing) | | (unavailable | 19:08 | [facility] | | | | + + + +-------+---------+ + + + | Result panel 26 | + + + + + +-------+ + + | | 2022-03-25 | [facility] | 8.3 | (missing) | (missing) | | (unavailable | 19:08 | [facility] | | | | + + + +-------+ + + + + | Result panel 27 | + + + + + +-------+ + + | | 2022-03-25 | [facility] | 4.7 | (missing) | (missing) | | (unavailable | 19:08 | [facility] | | | | + + + +-------+ + + + + | Result panel 28 | + + + + + +-------+ + + | | 2022-03-25 | [facility] | 3.6 | (missing) | (missing) | | (unavailable | 19:08 | [facility] | | | | + + + +-------+ + + + + | Result panel 29 | + + + + + +--------+ + + | | 2022-03-25 | [facility] | 1.31 | (missing) | (missing) | | (unavailable | 19:08 | [facility] | | | | + + + +--------+ + + + + | Result panel 30 | + + + + + +-------+ + + | | 2022-03-25 | [facility] | 1.9 | (missing) | (missing) | | (unavailable | 19:08 | [facility] | | | | + + + +-------+ + + + + | Result panel 31 | + + + + + +------+ + + | | 2022-03-25 | [facility] | 82 | (missing) | (missing) | | (unavailable | 19:08 | [facility] | | | | + + + +------+ + + + + | Result panel 32 | + + + + + +------+ + + | | 2022-03-25 | [facility] | 97 | (missing) | (missing) | | (unavailable | 19:08 | [facility] | | | | + + + +------+ + + + + | Result panel 33 | + + + + + +------+ + + | | 2022-03-25 | [facility] | 86 | (missing) | (missing) | | (unavailable | 19:08 | [facility] | | | | + + + +------+ + + + + | Result panel 34 | + + + + + +---------+ + + | | 2022-03-25 | [facility] | 1.508 | (missing) | (missing) | | (unavailable | 19:08 | [facility] | | | | + + + +---------+ + + + + | Result panel 35 | + + + + + +-----+ + + | | 2022-03-25 | [facility] | 0 | (missing) | (missing) | | (unavailable | 19:08 | [facility] | | | | + + + +-----+ + + + + | Result panel 36 | + + + + + +------+ + + | | 2022-03-25 | [facility] | // | (missing) | (missing) | | (unavailable | 19:08 | [facility] | | | | + + + +------+ + + + + | Result panel 37 | + + + + + + + + + | | 2022-03-25 | [facility] | < 2.0 mg/dL | (missing) | (missing) | | (unavailable | 19:08 | [facility] | | | | + + + + + + + + + | Result panel 38 | + + + + + +------+ + + | | 2022-03-25 | [facility] | // | (missing) | (missing) | | (unavailable | 19:08 | [facility] | | | | + + + +------+ + + + + | Result panel 39 | + + + + + +------+ + + | | 2022-03-25 | [facility] | <3 | (missing) | (missing) | | (unavailable | 19:08 | [facility] | | | | + + + +------+ + + + + | Result panel 40 | + + + + + + + + + | | 2022-03-25 | [facility] | YELLOW | (missing) | (missing) | | (unavailable | 19:24 | [facility] | | | | + + + + + + + + + | Result panel 41 | + + + + + +---------+ + + | | 2022-03-25 | [facility] | CLEAR | (missing) | (missing) | | (unavailable | 19:24 | [facility] | | | | + + + +---------+ + + + + | Result panel 42 | + + + + + +---------+ + + | | 2022-03-25 | [facility] | LARGE | (missing) | (missing) | | (unavailable | 19:24 | [facility] | | | | + + + +---------+ + + + + | Result panel 43 | + + + + + + + + + | | 2022-03-25 | [facility] | NEGATIVE | (missing) | (missing) | | (unavailable | 19:24 | [facility] | | | | + + + + + + + + + | Result panel 44 | + + + + + +---------+ + + | | 2022-03-25 | [facility] | SMALL | (missing) | (missing) | | (unavailable | 19:24 | [facility] | | | | + + + +---------+ + + + + | Result panel 45 | + + + + + +---------+ + + | | 2022-03-25 | [facility] | 1.015 | (missing) | (missing) | | (unavailable | 19:24 | [facility] | | | | + + + +---------+ + + + + | Result panel 46 | + + + + + + + + + | | 2022-03-25 | [facility] | NEGATIVE | (missing) | (missing) | | (unavailable | 19:24 | [facility] | | | | + + + + + + + + + | Result panel 47 | + + + + + +-------+ + + | | 2022-03-25 | [facility] | 6.0 | (missing) | (missing) | | (unavailable | 19:24 | [facility] | | | | + + + +-------+ + + + + | Result panel 48 | + + + + + + + + + | | 2022-03-25 | [facility] | NEGATIVE | (missing) | (missing) | | (unavailable | 19:24 | [facility] | | | | + + + + + + + + + | Result panel 49 | + + + + + + + + + | | 2022-03-25 | [facility] | NORMAL | (missing) | (missing) | | (unavailable | 19:24 | [facility] | | | | + + + + + + + + + | Result panel 50 | + + + + + + + + + | | 2022-03-25 | [facility] | NEGATIVE | (missing) | (missing) | | (unavailable | 19:24 | [facility] | | | | + + + + + + + + + | Result panel 51 | + + + + + + + + + | | 2022-03-25 | [facility] | NEGATIVE | (missing) | (missing) | | (unavailable | 19:24 | [facility] | | | | + + + + + + + + + | Result panel 52 | + + + + + +------+ + + | | 2022-03-25 | [facility] | No | (missing) | (missing) | | (unavailable | 19:24 | [facility] | | | | + + + +------+ + + + + | Result panel 53 | + + + + + + + + + | | 2022-03-25 | [facility] | CLEAN CATCH | (missing) | (missing) | | (unavailable | 19:24 | [facility] | | | | + + + + + + + + + | Result panel 54 | + + + + + + + + + | | 2022-03-25 | [facility] | POSITIVE | (missing) | (missing) | | (unavailable | 19:24 | [facility] | | | | + + + + + + + + + | Result panel 55 | + + + + + + + + + | | 2022-03-25 | [facility] | POSITIVE | (missing) | (missing) | | (unavailable | 19:24 | [facility] | | | | + + + + + + + + + | Result panel 56 | + + + + + + + + + | | 2022-03-25 | [facility] | NEGATIVE | (missing) | (missing) | | (unavailable | 19:24 | [facility] | | | | + + + + + + + + + | Result panel 57 | + + + + + + + + + | | 2022-03-25 | [facility] | NEGATIVE | (missing) | (missing) | | (unavailable | 19:24 | [facility] | | | | + + + + + + + + + | Result panel 58 | + + + + + + + + + | | 2022-03-25 | [facility] | NEGATIVE | (missing) | (missing) | | (unavailable | 19:24 | [facility] | | | | + + + + + + + + + | Result panel 59 | + + + + + + + + + | | 2022-03-25 | [facility] | NEGATIVE | (missing) | (missing) | | (unavailable | 19:24 | [facility] | | | | + + + + + + + + + | Result panel 60 | + + + + + + + + + | | 2022-03-25 | [facility] | NEGATIVE | (missing) | (missing) | | (unavailable | 19:24 | [facility] | | | | + + + + + + + + + | Result panel 61 | + + + + + + + + + | | 2022-03-25 | [facility] | NEGATIVE | (missing) | (missing) | | (unavailable | 19:24 | [facility] | | | | + + + + + + + + + | Result panel 62 | + + + + + + + + + | | 2022-03-25 | [facility] | NEGATIVE | (missing) | (missing) | | (unavailable | 19:24 | [facility] | | | | + + + + + + + + + | Result panel 63 | + + + + + + + + + | | 2022-03-25 | [facility] | POSITIVE | (missing) | (missing) | | (unavailable | 19:24 | [facility] | | | | + + + + + + + + + | Result panel 64 | + + + + + + + + + | | 2022-03-25 | [facility] | NEGATIVE | (missing) | (missing) | | (unavailable | 19:24 | [facility] | | | | + + + + + + + + + | Result panel 65 | + + + + + + + + + | | 2022-03-25 | [facility] | NEGATIVE | (missing) | (missing) | | (unavailable | 19:24 | [facility] | | | | + + + + + + + + + | Result panel 66 | + + + + + + + + + | | 2022-03-25 | [facility] | NEGATIVE | (missing) | (missing) | | (unavailable | 19:24 | [facility] | | | | + + + + + + + + + | Result panel 67 | + + + + + + + + + | | 2022-03-26 | [facility] | NEGATIVE | (missing) | (missing) | | (unavailable | 04:32 | [facility] | | | | + + + + + + + + + | Result panel 68 | + + + + + + + + + | | 2022-03-26 | [facility] | NEGATIVE | (missing) | (missing) | | (unavailable | 04:32 | [facility] | | | | + + + + + + + + + | Result panel 69 | + + + + + + + + + | | 2022-03-26 | [facility] | NEGATIVE | (missing) | (missing) | | (unavailable | 04:32 | [facility] | | | | + + + + + + + + + | Result panel 70 | + + + + + + + + + | | 2022-03-26 | [facility] | NEGATIVE | (missing) | (missing) | | (unavailable | 04:32 | [facility] | | | | + + + + + + + + + | Result panel 71 | + + + + + + + + + | | 2022-05-04 | [facility] | YELLOW | (missing) | (missing) | | (unavailable | 14:36 | [facility] | | | | + + + + + + + + + | Result panel 72 | + + + + + + + + + | | 2022-05-04 | [facility] | CLOUDY | (missing) | (missing) | | (unavailable | 14:36 | [facility] | | | | + + + + + + + + + | Result panel 73 | + + + + + + + + + | | 2022-05-04 | [facility] | NEGATIVE | (missing) | (missing) | | (unavailable | 14:36 | [facility] | | | | + + + + + + + + + | Result panel 74 | + + + + + + + + + | | 2022-05-04 | [facility] | POSITIVE | (missing) | (missing) | | (unavailable | 14:36 | [facility] | | | | + + + + + + + + + | Result panel 75 | + + + + + +---------+ + + | | 2022-05-04 | [facility] | SMALL | (missing) | (missing) | | (unavailable | 14:36 | [facility] | | | | + + + +---------+ + + + + | Result panel 76 | + + + + + +---------+ + + | | 2022-05-04 | [facility] | 1.025 | (missing) | (missing) | | (unavailable | 14:36 | [facility] | | | | + + + +---------+ + + + + | Result panel 77 | + + + + + + + + + | | 2022-05-04 | [facility] | NEGATIVE | (missing) | (missing) | | (unavailable | 14:36 | [facility] | | | | + + + + + + + + + | Result panel 78 | + + + + + +-------+ + + | | 2022-05-04 | [facility] | 6.0 | (missing) | (missing) | | (unavailable | 14:36 | [facility] | | | | + + + +-------+ + + + + | Result panel 79 | + + + + + + + + + | | 2022-05-04 | [facility] | NEGATIVE | (missing) | (missing) | | (unavailable | 14:36 | [facility] | | | | + + + + + + + + + | Result panel 80 | + + + + + + + + + | | 2022-05-04 | [facility] | NORMAL | (missing) | (missing) | | (unavailable | 14:36 | [facility] | | | | + + + + + + + + + | Result panel 81 | + + + + + + + + + | | 2022-05-04 | [facility] | NEGATIVE | (missing) | (missing) | | (unavailable | 14:36 | [facility] | | | | + + + + + + + + + | Result panel 82 | + + + + + + + + + | | 2022-05-04 | [facility] | NEGATIVE | (missing) | (missing) | | (unavailable | 14:36 | [facility] | | | | + + + + + + + + + | Result panel 83 | + + + + + + + + + | | 2022-05-04 | [facility] | POSITIVE | (missing) | (missing) | | (unavailable | 14:36 | [facility] | | | | + + + + + + + + + | Result panel 84 | + + + + + + + + + | | 2022-05-04 | [facility] | NEGATIVE | (missing) | (missing) | | (unavailable | 14:36 | [facility] | | | | + + + + + + + + + | Result panel 85 | + + + + + + + + + | | 2022-05-04 | [facility] | NEGATIVE | (missing) | (missing) | | (unavailable | 14:36 | [facility] | | | | + + + + + + + + + | Result panel 86 | + + + + + + + + + | | 2022-05-04 | [facility] | NEGATIVE | (missing) | (missing) | | (unavailable | 14:36 | [facility] | | | | + + + + + + + + + | Result panel 87 | + + + + + + + + + | | 2022-05-04 | [facility] | NEGATIVE | (missing) | (missing) | | (unavailable | 14:36 | [facility] | | | | + + + + + + + + + | Result panel 88 | + + + + + + + + + | | 2022-05-04 | [facility] | NEGATIVE | (missing) | (missing) | | (unavailable | 14:36 | [facility] | | | | + + + + + + + + + | Result panel 89 | + + + + + + + + + | | 2022-05-04 | [facility] | NEGATIVE | (missing) | (missing) | | (unavailable | 14:36 | [facility] | | | | + + + + + + + + + | Result panel 90 | + + + + + + + + + | | 2022-05-04 | [facility] | NEGATIVE | (missing) | (missing) | | (unavailable | 14:36 | [facility] | | | | + + + + + + + + + | Result panel 91 | + + + + + + + + + | | 2022-05-04 | [facility] | NEGATIVE | (missing) | (missing) | | (unavailable | 14:36 | [facility] | | | | + + + + + + + + + | Result panel 92 | + + + + + + + + + | | 2022-05-04 | [facility] | NEGATIVE | (missing) | (missing) | | (unavailable | 14:36 | [facility] | | | | + + + + + + + + + | Result panel 93 | + + + + + + + + + | | 2022-05-04 | [facility] | NEGATIVE | (missing) | (missing) | | (unavailable | 14:36 | [facility] | | | | + + + + + + + + + | Result panel 94 | + + + + + + + + + | | 2022-05-04 | [facility] | NEGATIVE | (missing) | (missing) | | (unavailable | 14:36 | [facility] | | | | + + + + + + + + + | Result panel 95 | + + + + + + + + + | | 2022-05-04 | [facility] | NEGATIVE | (missing) | (missing) | | (unavailable | 14:36 | [facility] | | | | + + + + + + + + + | Result panel 96 | + + + + + +-------+---------+ + | | 2022-05-04 | [facility] | 103 | mg/dL | (missing) | | (unavailable | 14:55 | [facility] | | | | + + + +-------+---------+ + + + | Result panel 97 | + + + + + +------+---------+ + | | 2022-05-04 | [facility] | 14 | mg/dL | (missing) | | (unavailable | 14:55 | [facility] | | | | + + + +------+---------+ + + + | Result panel 98 | + + + + + +--------+---------+ + | | 2022-05-04 | [facility] | 0.85 | mg/dL | (missing) | | (unavailable | 14:55 | [facility] | | | | + + + +--------+---------+ + + + | Result panel 99 | + + + + + +-------+ + + | | 2022-05-04 | [facility] | 125 | (missing) | (missing) | | (unavailable | 14:55 | [facility] | | | | + + + +-------+ + + + + | Result panel 100 | + + + + + +---------+ + + | | 2022-05-04 | [facility] | 16.47 | (missing) | (missing) | | (unavailable | 14:55 | [facility] | | | | + + + +---------+ + + + + | Result panel 101 | + + + + + +-------+ + + | | 2022-05-04 | [facility] | 137 | (missing) | (missing) | | (unavailable | 14:55 | [facility] | | | | + + + +-------+ + + + + | Result panel 102 | + + + + + +-------+ + + | | 2022-05-04 | [facility] | 3.5 | (missing) | (missing) | | (unavailable | 14:55 | [facility] | | | | + + + +-------+ + + + + | Result panel 103 | + + + + + +-------+ + + | | 2022-05-04 | [facility] | 100 | (missing) | (missing) | | (unavailable | 14:55 | [facility] | | | | + + + +-------+ + + + + | Result panel 104 | + + + + + +------+ + + | | 2022-05-04 | [facility] | 24 | (missing) | (missing) | | (unavailable | 14:55 | [facility] | | | | + + + +------+ + + + + | Result panel 105 | + + + + + +--------+ + + | | 2022-05-04 | [facility] | 16.5 | (missing) | (missing) | | (unavailable | 14:55 | [facility] | | | | + + + +--------+ + + + + | Result panel 106 | + + + + + +-------+---------+ + | | 2022-05-04 | [facility] | 9.1 | mg/dL | (missing) | | (unavailable | 14:55 | [facility] | | | | + + + +-------+---------+ + + + | Result panel 107 | + + + + + +-------+ + + | | 2022-05-04 | [facility] | 8.4 | (missing) | (missing) | | (unavailable | 14:55 | [facility] | | | | + + + +-------+ + + + + | Result panel 108 | + + + + + +-------+ + + | | 2022-05-04 | [facility] | 4.6 | (missing) | (missing) | | (unavailable | 14:55 | [facility] | | | | + + + +-------+ + + + + | Result panel 109 | + + + + + +-------+ + + | | 2022-05-04 | [facility] | 3.8 | (missing) | (missing) | | (unavailable | 14:55 | [facility] | | | | + + + +-------+ + + + + | Result panel 110 | + + + + + +--------+ + + | | 2022-05-04 | [facility] | 1.21 | (missing) | (missing) | | (unavailable | 14:55 | [facility] | | | | + + + +--------+ + + + + | Result panel 111 | + + + + + +------+ + + | | 2022-05-04 | [facility] | 16 | (missing) | (missing) | | (unavailable | 14:55 | [facility] | | | | + + + +------+ + + + + | Result panel 112 | + + + + + +------+ + + | | 2022-05-04 | [facility] | 23 | (missing) | (missing) | | (unavailable | 14:55 | [facility] | | | | + + + +------+ + + + + | Result panel 113 | + + + + + +------+ + + | | 2022-05-04 | [facility] | 66 | (missing) | (missing) | | (unavailable | 14:55 | [facility] | | | | + + + +------+ + + + + | Result panel 114 | + + + + + +---------+ + + | | 2022-05-04 | [facility] | 0.671 | (missing) | (missing) | | (unavailable | 14:55 | [facility] | | | | + + + +---------+ + + + + | Result panel 115 | + + + + + +-----+ + + | | 2022-05-04 | [facility] | 0 | (missing) | (missing) | | (unavailable | 14:55 | [facility] | | | | + + + +-----+ + + + + | Result panel 116 | + + + + + +-------+---------+ + | | 2022-05-04 | [facility] | 0.7 | mg/dL | (missing) | | (unavailable | 14:55 | [facility] | | | | + + + +-------+---------+ + + + | Result panel 117 | + + + + + +------+ + + | | 2022-05-04 | [facility] | <3 | (missing) | (missing) | | (unavailable | 14:55 | [facility] | | | | + + + +------+ + + + + | Result panel 118 | + + + + + +-------+ + + | | 2022-05-04 | [facility] | 7.9 | (missing) | (missing) | | (unavailable | 16:18 | [facility] | | | | + + + +-------+ + + + + | Result panel 119 | + + + + + +--------+ + + | | 2022-05-04 | [facility] | 5.59 | (missing) | (missing) | | (unavailable | 16:18 | [facility] | | | | + + + +--------+ + + + + | Result panel 120 | + + + + + +--------+ + + | | 2022-05-04 | [facility] | 15.9 | (missing) | (missing) | | (unavailable | 16:18 | [facility] | | | | + + + +--------+ + + + + | Result panel 121 | + + + + + +--------+ + + | | 2022-05-04 | [facility] | 46.1 | (missing) | (missing) | | (unavailable | 16:18 | [facility] | | | | + + + +--------+ + + + + | Result panel 122 | + + + + + +--------+ + + | | 2022-05-04 | [facility] | 82.5 | (missing) | (missing) | | (unavailable | 16:18 | [facility] | | | | + + + +--------+ + + + + | Result panel 123 | + + + + + +--------+ + + | | 2022-05-04 | [facility] | 28.4 | (missing) | (missing) | | (unavailable | 16:18 | [facility] | | | | + + + +--------+ + + + + | Result panel 124 | + + + + + +--------+ + + | | 2022-05-04 | [facility] | 34.5 | (missing) | (missing) | | (unavailable | 16:18 | [facility] | | | | + + + +--------+ + + + + | Result panel 125 | + + + + + +--------+ + + | | 2022-05-04 | [facility] | 14.3 | (missing) | (missing) | | (unavailable | 16:18 | [facility] | | | | + + + +--------+ + + + + | Result panel 126 | + + + + + +-------+ + + | | 2022-05-04 | [facility] | 190 | (missing) | (missing) | | (unavailable | 16:18 | [facility] | | | | + + + +-------+ + + + + | Result panel 127 | + + + + + +--------+ + + | | 2022-05-04 | [facility] | 79.8 | (missing) | (missing) | | (unavailable | 16:18 | [facility] | | | | + + + +--------+ + + + + | Result panel 128 | + + + + + +--------+ + + | | 2022-05-04 | [facility] | 14.1 | (missing) | (missing) | | (unavailable | 16:18 | [facility] | | | | + + + +--------+ + + + + | Result panel 129 | + + + + + +-------+ + + | | 2022-05-04 | [facility] | 5.9 | (missing) | (missing) | | (unavailable | 16:18 | [facility] | | | | + + + +-------+ + + + + | Result panel 130 | + + + + + +-------+ + + | | 2022-05-04 | [facility] | 0.1 | (missing) | (missing) | | (unavailable | 16:18 | [facility] | | | | + + + +-------+ + + + + | Result panel 131 | + + + + + +-------+ + + | | 2022-05-04 | [facility] | 0.1 | (missing) | (missing) | | (unavailable | 16:18 | [facility] | | | | + + + +-------+ + + + + | Result panel 132 | + + + + + + + + + | | 2022-05-05 | [facility] | NEGATIVE | (missing) | (missing) | | (unavailable | 09:38 | [facility] | | | | + + + + + + + + + | Result panel 133 | + + + + + + + + + | | 2022-05-05 | [facility] | NEGATIVE | (missing) | (missing) | | (unavailable | 09:38 | [facility] | | | | + + + + + + + + + | Result panel 134 | + + + + + + + + + | | 2022-05-05 | [facility] | NEGATIVE | (missing) | (missing) | | (unavailable | 09:38 | [facility] | | | | + + + + + + + + + | Result panel 135 | + + + + + + + + + | | 2022-05-05 | [facility] | NEGATIVE | (missing) | (missing) | | (unavailable | 09:38 | [facility] | | | | + + + + + + + + + | Result panel 136 | + + + + + +--------+ + + | | 2022-06-12 | [facility] | 10.3 | (missing) | (missing) | | (unavailable | 14:35 | [facility] | | | | + + + +--------+ + + + + | Result panel 137 | + + + + + +--------+ + + | | 2022-06-12 | [facility] | 5.31 | (missing) | (missing) | | (unavailable | 14:35 | [facility] | | | | + + + +--------+ + + + + | Result panel 138 | + + + + + +--------+ + + | | 2022-06-12 | [facility] | 15.3 | (missing) | (missing) | | (unavailable | 14:35 | [facility] | | | | + + + +--------+ + + + + | Result panel 139 | + + + + + +--------+ + + | | 2022-06-12 | [facility] | 44.6 | (missing) | (missing) | | (unavailable | 14:35 | [facility] | | | | + + + +--------+ + + + + | Result panel 140 | + + + + + +--------+ + + | | 2022-06-12 | [facility] | 84.1 | (missing) | (missing) | | (unavailable | 14:35 | [facility] | | | | + + + +--------+ + + + + | Result panel 141 | + + + + + +--------+ + + | | 2022-06-12 | [facility] | 28.8 | (missing) | (missing) | | (unavailable | 14:35 | [facility] | | | | + + + +--------+ + + + + | Result panel 142 | + + + + + +--------+ + + | | 2022-06-12 | [facility] | 34.3 | (missing) | (missing) | | (unavailable | 14:35 | [facility] | | | | + + + +--------+ + + + + | Result panel 143 | + + + + + +--------+ + + | | 2022-06-12 | [facility] | 13.9 | (missing) | (missing) | | (unavailable | 14:35 | [facility] | | | | + + + +--------+ + + + + | Result panel 144 | + + + + + +-------+ + + | | 2022-06-12 | [facility] | 249 | (missing) | (missing) | | (unavailable | 14:35 | [facility] | | | | + + + +-------+ + + + + | Result panel 145 | + + + + + +--------+ + + | | 2022-06-12 | [facility] | 83.3 | (missing) | (missing) | | (unavailable | 14:35 | [facility] | | | | + + + +--------+ + + + + | Result panel 146 | + + + + + +-------+ + + | | 2022-06-12 | [facility] | 8.9 | (missing) | (missing) | | (unavailable | 14:35 | [facility] | | | | + + + +-------+ + + + + | Result panel 147 | + + + + + +-------+ + + | | 2022-06-12 | [facility] | 6.9 | (missing) | (missing) | | (unavailable | 14:35 | [facility] | | | | + + + +-------+ + + + + | Result panel 148 | + + + + + +-------+ + + | | 2022-06-12 | [facility] | 0.5 | (missing) | (missing) | | (unavailable | 14:35 | [facility] | | | | + + + +-------+ + + + + | Result panel 149 | + + + + + +-------+ + + | | 2022-06-12 | [facility] | 0.4 | (missing) | (missing) | | (unavailable | 14:35 | [facility] | | | | + + + +-------+ + + + + | Result panel 150 | + + + + + +------+---------+ + | | 2022-06-12 | [facility] | 87 | mg/dL | (missing) | | (unavailable | 14:35 | [facility] | | | | + + + +------+---------+ + + + | Result panel 151 | + + + + + +------+---------+ + | | 2022-06-12 | [facility] | 15 | mg/dL | (missing) | | (unavailable | 14:35 | [facility] | | | | + + + +------+---------+ + + + | Result panel 152 | + + + + + +--------+---------+ + | | 2022-06-12 | [facility] | 0.82 | mg/dL | (missing) | | (unavailable | 14:35 | [facility] | | | | + + + +--------+---------+ + + + | Result panel 153 | + + + + + +-------+ + + | | 2022-06-12 | [facility] | 127 | (missing) | (missing) | | (unavailable | 14:35 | [facility] | | | | + + + +-------+ + + + + | Result panel 154 | + + + + + +---------+ + + | | 2022-06-12 | [facility] | 18.29 | (missing) | (missing) | | (unavailable | 14:35 | [facility] | | | | + + + +---------+ + + + + | Result panel 155 | + + + + + +-------+ + + | | 2022-06-12 | [facility] | 140 | (missing) | (missing) | | (unavailable | 14:35 | [facility] | | | | + + + +-------+ + + + + | Result panel 156 | + + + + + +-------+ + + | | 2022-06-12 | [facility] | 3.7 | (missing) | (missing) | | (unavailable | 14:35 | [facility] | | | | + + + +-------+ + + + + | Result panel 157 | + + + + + +-------+ + + | | 2022-06-12 | [facility] | 101 | (missing) | (missing) | | (unavailable | 14:35 | [facility] | | | | + + + +-------+ + + + + | Result panel 158 | + + + + + +------+ + + | | 2022-06-12 | [facility] | 29 | (missing) | (missing) | | (unavailable | 14:35 | [facility] | | | | + + + +------+ + + + + | Result panel 159 | + + + + + +--------+ + + | | 2022-06-12 | [facility] | 13.7 | (missing) | (missing) | | (unavailable | 14:35 | [facility] | | | | + + + +--------+ + + + + | Result panel 160 | + + + + + +-------+---------+ + | | 2022-06-12 | [facility] | 9.0 | mg/dL | (missing) | | (unavailable | 14:35 | [facility] | | | | + + + +-------+---------+ + + + | Result panel 161 | + + + + + +-------+ + + | | 2022-06-12 | [facility] | 7.7 | (missing) | (missing) | | (unavailable | 14:35 | [facility] | | | | + + + +-------+ + + + + | Result panel 162 | + + + + + +-------+ + + | | 2022-06-12 | [facility] | 4.0 | (missing) | (missing) | | (unavailable | 14:35 | [facility] | | | | + + + +-------+ + + + + | Result panel 163 | + + + + + +-------+ + + | | 2022-06-12 | [facility] | 3.7 | (missing) | (missing) | | (unavailable | 14:35 | [facility] | | | | + + + +-------+ + + + + | Result panel 164 | + + + + + +--------+ + + | | 2022-06-12 | [facility] | 1.08 | (missing) | (missing) | | (unavailable | 14:35 | [facility] | | | | + + + +--------+ + + + + | Result panel 165 | + + + + + +-------+ + + | | 2022-06-12 | [facility] | 0.9 | (missing) | (missing) | | (unavailable | 14:35 | [facility] | | | | + + + +-------+ + + + + | Result panel 166 | + + + + + +------+ + + | | 2022-06-12 | [facility] | 24 | (missing) | (missing) | | (unavailable | 14:35 | [facility] | | | | + + + +------+ + + + + | Result panel 167 | + + + + + +------+ + + | | 2022-06-12 | [facility] | 76 | (missing) | (missing) | | (unavailable | 14:35 | [facility] | | | | + + + +------+ + + + + | Result panel 168 | + + + + + +------+ + + | | 2022-06-12 | [facility] | 57 | (missing) | (missing) | | (unavailable | 14:35 | [facility] | | | | + + + +------+ + + + + | Result panel 169 | + + + + + +---------+ + + | | 2022-06-12 | [facility] | 0.183 | (missing) | (missing) | | (unavailable | 14:35 | [facility] | | | | + + + +---------+ + + + + | Result panel 170 | + + + + + +-----+ + + | | 2022-06-12 | [facility] | 0 | (missing) | (missing) | | (unavailable | 14:35 | [facility] | | | | + + + +-----+ + + + + | Result panel 171 | + + + + + +------+ + + | | 2022-06-12 | [facility] | // | (missing) | (missing) | | (unavailable | 14:35 | [facility] | | | | + + + +------+ + + + + | Result panel 172 | + + + + + +-------+---------+ + | | 2022-06-12 | [facility] | 3.4 | mg/dL | (missing) | | (unavailable | 14:35 | [facility] | | | | + + + +-------+---------+ + + + | Result panel 173 | + + + + + +------+ + + | | 2022-06-12 | [facility] | // | (missing) | (missing) | | (unavailable | 14:35 | [facility] | | | | + + + +------+ + + + + | Result panel 174 | + + + + + +-----+ + + | | 2022-06-12 | [facility] | 3 | (missing) | (missing) | | (unavailable | 14:35 | [facility] | | | | + + + +-----+ + + + + | Result panel 175 | + + + + + + + + + | | 2022-06-12 | [facility] | POSITIVE | (missing) | (missing) | | (unavailable | 16:19 | [facility] | | | | + + + + + + + + + | Result panel 176 | + + + + + + + + + | | 2022-06-12 | [facility] | POSITIVE | (missing) | (missing) | | (unavailable | 16:19 | [facility] | | | | + + + + + + + + + | Result panel 177 | + + + + + + + + + | | 2022-06-12 | [facility] | NEGATIVE | (missing) | (missing) | | (unavailable | 16:19 | [facility] | | | | + + + + + + + + + | Result panel 178 | + + + + + + + + + | | 2022-06-12 | [facility] | NEGATIVE | (missing) | (missing) | | (unavailable | 16:19 | [facility] | | | | + + + + + + + + + | Result panel 179 | + + + + + + + + + | | 2022-06-12 | [facility] | NEGATIVE | (missing) | (missing) | | (unavailable | 16:19 | [facility] | | | | + + + + + + + + + | Result panel 180 | + + + + + + + + + | | 2022-06-12 | [facility] | NEGATIVE | (missing) | (missing) | | (unavailable | 16:19 | [facility] | | | | + + + + + + + + + | Result panel 181 | + + + + + + + + + | | 2022-06-12 | [facility] | NEGATIVE | (missing) | (missing) | | (unavailable | 16:19 | [facility] | | | | + + + + + + + + + | Result panel 182 | + + + + + + + + + | | 2022-06-12 | [facility] | NEGATIVE | (missing) | (missing) | | (unavailable | 16:19 | [facility] | | | | + + + + + + + + + | Result panel 183 | + + + + + + + + + | | 2022-06-12 | [facility] | NEGATIVE | (missing) | (missing) | | (unavailable | 16:19 | [facility] | | | | + + + + + + + + + | Result panel 184 | + + + + + + + + + | | 2022-06-12 | [facility] | POSITIVE | (missing) | (missing) | | (unavailable | 16:19 | [facility] | | | | + + + + + + + + + | Result panel 185 | + + + + + + + + + | | 2022-06-12 | [facility] | NEGATIVE | (missing) | (missing) | | (unavailable | 16:19 | [facility] | | | | + + + + + + + + + | Result panel 186 | + + + + + + + + + | | 2022-06-12 | [facility] | NEGATIVE | (missing) | (missing) | | (unavailable | 16:19 | [facility] | | | | + + + + + + + + + | Result panel 187 | + + + + + + + + + | | 2022-06-12 | [facility] | POSITIVE | (missing) | (missing) | | (unavailable | 16:19 | [facility] | | | | + + + + + + + + + | Result panel 188 | + + + + + + + + + | | 2022-06-12 | [facility] | NEGATIVE | (missing) | (missing) | | (unavailable | 16:30 | [facility] | | | | + + + + + + + + + | Result panel 189 | + + + + + + + + + | | 2022-06-12 | [facility] | NEGATIVE | (missing) | (missing) | | (unavailable | 16:30 | [facility] | | | | + + + + + + + + + | Result panel 190 | + + + + + + + + + | | 2022-06-12 | [facility] | NEGATIVE | (missing) | (missing) | | (unavailable | 16:30 | [facility] | | | | + + + + + + + + + | Result panel 191 | + + + + + + + + + | | 2022-06-12 | [facility] | NEGATIVE | (missing) | (missing) | | (unavailable | 16:30 | [facility] | | | | + + + + + + + + + | Result panel 192 | + + + + + +-------+ + + | | 2022-06-19 | [facility] | 9.0 | (missing) | (missing) | | (unavailable | 15:26 | [facility] | | | | + + + +-------+ + + + + | Result panel 193 | + + + + + +--------+ + + | | 2022-06-19 | [facility] | 5.42 | (missing) | (missing) | | (unavailable | 15:26 | [facility] | | | | + + + +--------+ + + + + | Result panel 194 | + + + + + +--------+ + + | | 2022-06-19 | [facility] | 15.3 | (missing) | (missing) | | (unavailable | 15:26 | [facility] | | | | + + + +--------+ + + + + | Result panel 195 | + + + + + +--------+ + + | | 2022-06-19 | [facility] | 45.5 | (missing) | (missing) | | (unavailable | 15:26 | [facility] | | | | + + + +--------+ + + + + | Result panel 196 | + + + + + +--------+ + + | | 2022-06-19 | [facility] | 83.9 | (missing) | (missing) | | (unavailable | 15:26 | [facility] | | | | + + + +--------+ + + + + | Result panel 197 | + + + + + +--------+ + + | | 2022-06-19 | [facility] | 28.3 | (missing) | (missing) | | (unavailable | 15:26 | [facility] | | | | + + + +--------+ + + + + | Result panel 198 | + + + + + +--------+ + + | | 2022-06-19 | [facility] | 33.7 | (missing) | (missing) | | (unavailable | 15:26 | [facility] | | | | + + + +--------+ + + + + | Result panel 199 | + + + + + +--------+ + + | | 2022-06-19 | [facility] | 13.9 | (missing) | (missing) | | (unavailable | 15:26 | [facility] | | | | + + + +--------+ + + + + | Result panel 200 | + + + + + +-------+ + + | | 2022-06-19 | [facility] | 275 | (missing) | (missing) | | (unavailable | 15:26 | [facility] | | | | + + + +-------+ + + + + | Result panel 201 | + + + + + +--------+ + + | | 2022-06-19 | [facility] | 63.6 | (missing) | (missing) | | (unavailable | 15:26 | [facility] | | | | + + + +--------+ + + + + | Result panel 202 | + + + + + +--------+ + + | | 2022-06-19 | [facility] | 25.2 | (missing) | (missing) | | (unavailable | 15:26 | [facility] | | | | + + + +--------+ + + + + | Result panel 203 | + + + + + +--------+ + + | | 2022-06-19 | [facility] | 10.2 | (missing) | (missing) | | (unavailable | 15:26 | [facility] | | | | + + + +--------+ + + + + | Result panel 204 | + + + + + +-------+ + + | | 2022-06-19 | [facility] | 0.2 | (missing) | (missing) | | (unavailable | 15:26 | [facility] | | | | + + + +-------+ + + + + | Result panel 205 | + + + + + +-------+ + + | | 2022-06-19 | [facility] | 0.8 | (missing) | (missing) | | (unavailable | 15:26 | [facility] | | | | + + + +-------+ + + + + | Result panel 206 | + + + + + +------+---------+ + | | 2022-06-19 | [facility] | 91 | mg/dL | (missing) | | (unavailable | 15:26 | [facility] | | | | + + + +------+---------+ + + + | Result panel 207 | + + + + + +------+---------+ + | | 2022-06-19 | [facility] | 12 | mg/dL | (missing) | | (unavailable | : | [facility] | | | | + + + +------+---------+ + + + | Result panel 208 | + + + + + +--------+---------+ + | | 2022-06-19 | [facility] | 0.83 | mg/dL | (missing) | | (unavailable | : | [facility] | | | | + + + +--------+---------+ + + + | Result panel 209 | + + + + + +-------+ + + | | 2022-06-19 | [facility] | 126 | (missing) | (missing) | | (unavailable | 15:26 | [facility] | | | | + + + +-------+ + + + + | Result panel 210 | + + + + + +---------+ + + | | 2022-06-19 | [facility] | 14.45 | (missing) | (missing) | | (unavailable | 15:26 | [facility] | | | | + + + +---------+ + + + + | Result panel 211 | + + + + + +-------+ + + | | 2022-06-19 | [facility] | 139 | (missing) | (missing) | | (unavailable | 15:26 | [facility] | | | | + + + +-------+ + + + + | Result panel 212 | + + + + + +-------+ + + | | 2022-06-19 | [facility] | 3.5 | (missing) | (missing) | | (unavailable | 15:26 | [facility] | | | | + + + +-------+ + + + + | Result panel 213 | + + + + + +-------+ + + | | 2022-06-19 | [facility] | 101 | (missing) | (missing) | | (unavailable | 15:26 | [facility] | | | | + + + +-------+ + + + + | Result panel 214 | + + + + + +------+ + + | | 2022-06-19 | [facility] | 23 | (missing) | (missing) | | (unavailable | 15:26 | [facility] | | | | + + + +------+ + + + + | Result panel 215 | + + + + + +--------+ + + | | 2022-06-19 | [facility] | 18.5 | (missing) | (missing) | | (unavailable | 15:26 | [facility] | | | | + + + +--------+ + + + + | Result panel 216 | + + + + + +-------+---------+ + | | 2022-06-19 | [facility] | 9.3 | mg/dL | (missing) | | (unavailable | 15:26 | [facility] | | | | + + + +-------+---------+ + + + | Result panel 217 | + + + + + +-------+ + + | | 2022-06-19 | [facility] | 8.1 | (missing) | (missing) | | (unavailable | 15:26 | [facility] | | | | + + + +-------+ + + + + | Result panel 218 | + + + + + +-------+ + + | | 2022-06-19 | [facility] | 4.4 | (missing) | (missing) | | (unavailable | 15:26 | [facility] | | | | + + + +-------+ + + + + | Result panel 219 | + + + + + +-------+ + + | | 2022-06-19 | [facility] | 3.7 | (missing) | (missing) | | (unavailable | 15:26 | [facility] | | | | + + + +-------+ + + + + | Result panel 220 | + + + + + +--------+ + + | | 2022-06-19 | [facility] | 1.19 | (missing) | (missing) | | (unavailable | 15:26 | [facility] | | | | + + + +--------+ + + + + | Result panel 221 | + + + + + +-------+ + + | | 2022-06-19 | [facility] | 0.7 | (missing) | (missing) | | (unavailable | 15:26 | [facility] | | | | + + + +-------+ + + + + | Result panel 222 | + + + + + +------+ + + | | 2022-06-19 | [facility] | 31 | (missing) | (missing) | | (unavailable | 15:26 | [facility] | | | | + + + +------+ + + + + | Result panel 223 | + + + + + +------+ + + | | 2022-06-19 | [facility] | 41 | (missing) | (missing) | | (unavailable | 15:26 | [facility] | | | | + + + +------+ + + + + | Result panel 224 | + + + + + +------+ + + | | 2022-06-19 | [facility] | 62 | (missing) | (missing) | | (unavailable | 15:26 | [facility] | | | | + + + +------+ + + + + | Result panel 225 | + + + + + +---------+ + + | | 2022-06-19 | [facility] | 1.116 | (missing) | (missing) | | (unavailable | 15:26 | [facility] | | | | + + + +---------+ + + + + | Result panel 226 | + + + + + +-----+ + + | | 2022-06-19 | [facility] | 0 | (missing) | (missing) | | (unavailable | 15:26 | [facility] | | | | + + + +-----+ + + + + | Result panel 227 | + + + + + +------+ + + | | 2022-06-19 | [facility] | // | (missing) | (missing) | | (unavailable | :26 | [facility] | | | | + + + +------+ + + + + | Result panel 228 | + + + + + +-------+---------+ + | | 2022-06-19 | [facility] | 3.4 | mg/dL | (missing) | | (unavailable | : | [facility] | | | | + + + +-------+---------+ + + + | Result panel 229 | + + + + + +------+ + + | | 2022-06-19 | [facility] | // | (missing) | (missing) | | (unavailable | :26 | [facility] | | | | + + + +------+ + + + + | Result panel 230 | + + + + + +------+ + + | | 2022-06-19 | [facility] | <3 | (missing) | (missing) | | (unavailable | : | [facility] | | | | + + + +------+ + + + + | Result panel 231 | + + + + + + + + + | | 2022-06-19 | [facility] | POSITIVE | (missing) | (missing) | | (unavailable | 15:34 | [facility] | | | | + + + + + + + + + | Result panel 232 | + + + + + + + + + | | 2022-06-19 | [facility] | POSITIVE | (missing) | (missing) | | (unavailable | 15:34 | [facility] | | | | + + + + + + + + + | Result panel 233 | + + + + + + + + + | | 2022-06-19 | [facility] | NEGATIVE | (missing) | (missing) | | (unavailable | 15:34 | [facility] | | | | + + + + + + + + + | Result panel 234 | + + + + + + + + + | | 2022-06-19 | [facility] | NEGATIVE | (missing) | (missing) | | (unavailable | 15:34 | [facility] | | | | + + + + + + + + + | Result panel 235 | + + + + + + + + + | | 2022-06-19 | [facility] | NEGATIVE | (missing) | (missing) | | (unavailable | 15:34 | [facility] | | | | + + + + + + + + + | Result panel 236 | + + + + + + + + + | | 2022-06-19 | [facility] | NEGATIVE | (missing) | (missing) | | (unavailable | 15:34 | [facility] | | | | + + + + + + + + + | Result panel 237 | + + + + + + + + + | | 2022-06-19 | [facility] | NEGATIVE | (missing) | (missing) | | (unavailable | 15:34 | [facility] | | | | + + + + + + + + + | Result panel 238 | + + + + + + + + + | | 2022-06-19 | [facility] | NEGATIVE | (missing) | (missing) | | (unavailable | 15:34 | [facility] | | | | + + + + + + + + + | Result panel 239 | + + + + + + + + + | | 2022-06-19 | [facility] | NEGATIVE | (missing) | (missing) | | (unavailable | 15:34 | [facility] | | | | + + + + + + + + + | Result panel 240 | + + + + + + + + + | | 2022-06-19 | [facility] | POSITIVE | (missing) | (missing) | | (unavailable | 15:34 | [facility] | | | | + + + + + + + + + | Result panel 241 | + + + + + + + + + | | 2022-06-19 | [facility] | NEGATIVE | (missing) | (missing) | | (unavailable | 15:34 | [facility] | | | | + + + + + + + + + | Result panel 242 | + + + + + + + + + | | 2022-06-19 | [facility] | NEGATIVE | (missing) | (missing) | | (unavailable | 15:34 | [facility] | | | | + + + + + + + + + | Result panel 243 | + + + + + + + + + | | 2022-06-19 | [facility] | NEGATIVE | (missing) | (missing) | | (unavailable | 15:34 | [facility] | | | | + + + + + + + + + | Result panel 244 | + + + + + + + + + | | 2022-06-19 | [facility] | NEGATIVE | (missing) | (missing) | | (unavailable | 23:44 | [facility] | | | | + + + + + + + + + | Result panel 245 | + + + + + + + + + | | 2022-06-19 | [facility] | NEGATIVE | (missing) | (missing) | | (unavailable | 23:44 | [facility] | | | | + + + + + + + + + | Result panel 246 | + + + + + + + + + | | 2022-06-19 | [facility] | NEGATIVE | (missing) | (missing) | | (unavailable | 23:44 | [facility] | | | | + + + + + + + + + | Result panel 247 | + + + + + + + + + | | 2022-06-19 | [facility] | NEGATIVE | (missing) | (missing) | | (unavailable | 23:44 | [facility] | | | | + + + + + + + + + | Result panel 248 | + + + + + +-------+ + + | | 2022-09-25 | [facility] | 7.3 | (missing) | (missing) | | (unavailable | 19:32:08 | [facility] | | | | + + + +-------+ + + + + | Result panel 249 | + + + + + +--------+ + + | | 2022-09-25 | [facility] | 5.23 | (missing) | (missing) | | (unavailable | 19:32:08 | [facility] | | | | + + + +--------+ + + + + | Result panel 250 | + + + + + +--------+ + + | | 2022-09-25 | [facility] | 14.5 | (missing) | (missing) | | (unavailable | 19:32:08 | [facility] | | | | + + + +--------+ + + + + | Result panel 251 | + + + + + +--------+ + + | | 2022-09-25 | [facility] | 43.9 | (missing) | (missing) | | (unavailable | 19:32:08 | [facility] | | | | + + + +--------+ + + + + | Result panel 252 | + + + + + +--------+ + + | | 2022-09-25 | [facility] | 83.9 | (missing) | (missing) | | (unavailable | 19:32:08 | [facility] | | | | + + + +--------+ + + + + | Result panel 253 | + + + + + +--------+ + + | | 2022-09-25 | [facility] | 27.7 | (missing) | (missing) | | (unavailable | 19:32:08 | [facility] | | | | + + + +--------+ + + + + | Result panel 254 | + + + + + +--------+ + + | | 2022-09-25 | [facility] | 33.0 | (missing) | (missing) | | (unavailable | 19:32:08 | [facility] | | | | + + + +--------+ + + + + | Result panel 255 | + + + + + +--------+ + + | | 2022-09-25 | [facility] | 13.6 | (missing) | (missing) | | (unavailable | 19:32:08 | [facility] | | | | + + + +--------+ + + + + | Result panel 256 | + + + + + +-------+ + + | | 2022-09-25 | [facility] | 179 | (missing) | (missing) | | (unavailable | 19:32:08 | [facility] | | | | + + + +-------+ + + + + | Result panel 257 | + + + + + +--------+ + + | | 2022-09-25 | [facility] | 70.3 | (missing) | (missing) | | (unavailable | 19:32:08 | [facility] | | | | + + + +--------+ + + + + | Result panel 258 | + + + + + +--------+ + + | | 2022-09-25 | [facility] | 21.0 | (missing) | (missing) | | (unavailable | 19:32:08 | [facility] | | | | + + + +--------+ + + + + | Result panel 259 | + + + + + +-------+ + + | | 2022-09-25 | [facility] | 7.9 | (missing) | (missing) | | (unavailable | 19:32:08 | [facility] | | | | + + + +-------+ + + + + | Result panel 260 | + + + + + +-------+ + + | | 2022-09-25 | [facility] | 0.5 | (missing) | (missing) | | (unavailable | 19:32:08 | [facility] | | | | + + + +-------+ + + + + | Result panel 261 | + + + + + +-------+ + + | | 2022-09-25 | [facility] | 0.3 | (missing) | (missing) | | (unavailable | 19:32:08 | [facility] | | | | + + + +-------+ + + + + | Result panel 262 | + + + + + +------+---------+ + | | 2022-09-25 | [facility] | 93 | mg/dL | (missing) | | (unavailable | 19:32:08 | [facility] | | | | + + + +------+---------+ + + + | Result panel 263 | + + + + + +------+---------+ + | | 2022-09-25 | [facility] | 15 | mg/dL | (missing) | | (unavailable | 19:32:08 | [facility] | | | | + + + +------+---------+ + + + | Result panel 264 | + + + + + +--------+---------+ + | | 2022-09-25 | [facility] | 0.75 | mg/dL | (missing) | | (unavailable | 19:32:08 | [facility] | | | | + + + +--------+---------+ + + + | Result panel 265 | + + + + + +-------+ + + | | 2022-09-25 | [facility] | 129 | (missing) | (missing) | | (unavailable | 19:32:08 | [facility] | | | | + + + +-------+ + + + + | Result panel 266 | + + + + + +---------+ + + | | 2022-09-25 | [facility] | 20.00 | (missing) | (missing) | | (unavailable | 19:32:08 | [facility] | | | | + + + +---------+ + + + + | Result panel 267 | + + + + + +-------+ + + | | 2022-09-25 | [facility] | 142 | (missing) | (missing) | | (unavailable | 19:32:08 | [facility] | | | | + + + +-------+ + + + + | Result panel 268 | + + + + + +-------+ + + | | 2022-09-25 | [facility] | 3.4 | (missing) | (missing) | | (unavailable | 19:32:08 | [facility] | | | | + + + +-------+ + + + + | Result panel 269 | + + + + + +-------+ + + | | 2022-09-25 | [facility] | 104 | (missing) | (missing) | | (unavailable | 19:32:08 | [facility] | | | | + + + +-------+ + + + + | Result panel 270 | + + + + + +------+ + + | | 2022-09-25 | [facility] | 28 | (missing) | (missing) | | (unavailable | 19:32:08 | [facility] | | | | + + + +------+ + + + + | Result panel 271 | + + + + + +--------+ + + | | 2022-09-25 | [facility] | 13.4 | (missing) | (missing) | | (unavailable | 19:32:08 | [facility] | | | | + + + +--------+ + + + + | Result panel 272 | + + + + + +-------+---------+ + | | 2022-09-25 | [facility] | 9.2 | mg/dL | (missing) | | (unavailable | 19:32:08 | [facility] | | | | + + + +-------+---------+ + + + | Result panel 273 | + + + + + +-------+ + + | | 2022-09-25 | [facility] | 7.6 | (missing) | (missing) | | (unavailable | 19:32:08 | [facility] | | | | + + + +-------+ + + + + | Result panel 274 | + + + + + +-------+ + + | | 2022-09-25 | [facility] | 4.2 | (missing) | (missing) | | (unavailable | 19:32:08 | [facility] | | | | + + + +-------+ + + + + | Result panel 275 | + + + + + +-------+ + + | | 2022-09-25 | [facility] | 3.4 | (missing) | (missing) | | (unavailable | 19:32:08 | [facility] | | | | + + + +-------+ + + + + | Result panel 276 | + + + + + +--------+ + + | | 2022-09-25 | [facility] | 1.24 | (missing) | (missing) | | (unavailable | 19:32:08 | [facility] | | | | + + + +--------+ + + + + | Result panel 277 | + + + + + +-------+ + + | | 2022-09-25 | [facility] | 0.6 | (missing) | (missing) | | (unavailable | 19:32:08 | [facility] | | | | + + + +-------+ + + + + | Result panel 278 | + + + + + +------+ + + | | 2022-09-25 | [facility] | 22 | (missing) | (missing) | | (unavailable | 19:32:08 | [facility] | | | | + + + +------+ + + + + | Result panel 279 | + + + + + +------+ + + | | 2022-09-25 | [facility] | 40 | (missing) | (missing) | | (unavailable | 19:32:08 | [facility] | | | | + + + +------+ + + + + | Result panel 280 | + + + + + +------+ + + | | 2022-09-25 | [facility] | 60 | (missing) | (missing) | | (unavailable | 19:32:08 | [facility] | | | | + + + +------+ + + + + | Result panel 281 | + + + + + +---------+ + + | | 2022-09-25 | [facility] | 1.520 | (missing) | (missing) | | (unavailable | 19:32:08 | [facility] | | | | + + + +---------+ + + + + | Result panel 282 | + + + + + +-----+ + + | | 2022-09-25 | [facility] | 0 | (missing) | (missing) | | (unavailable | 19:32:08 | [facility] | | | | + + + +-----+ + + + + | Result panel 283 | + + + + + +------+ + + | | 2022-09-25 | [facility] | // | (missing) | (missing) | | (unavailable | 19:32:08 | [facility] | | | | + + + +------+ + + + + | Result panel 284 | + + + + + +-------+---------+ + | | 2022-09-25 | [facility] | 2.4 | mg/dL | (missing) | | (unavailable | 19:32:08 | [facility] | | | | + + + +-------+---------+ + + + | Result panel 285 | + + + + + +------+ + + | | 2022-09-25 | [facility] | // | (missing) | (missing) | | (unavailable | 19:32:08 | [facility] | | | | + + + +------+ + + + + | Result panel 286 | + + + + + +--------+ + + | | 2022-09-25 | [facility] | <0.2 | (missing) | (missing) | | (unavailable | :32:08 | [facility] | | | | + + + +--------+ + + + + | Result panel 287 | + + + + + +------+ + + | | 2022-09-25 | [facility] | // | (missing) | (missing) | | (unavailable | 19:32:08 | [facility] | | | | + + + +------+ + + + + | Result panel 288 | + + + + + +------+ + + | | 2022-09-25 | [facility] | <3 | (missing) | (missing) | | (unavailable | 19:32:08 | [facility] | | | | + + + +------+ + + + + | Result panel 289 | + + + + + + + + + | | 2022-09-25 | [facility] | YELLOW | (missing) | (missing) | | (unavailable | 19:40:08 | [facility] | | | | + + + + + + + + + | Result panel 290 | + + + + + + + + + | | 2022-09-25 | [facility] | CLOUDY | (missing) | (missing) | | (unavailable | 19:40:08 | [facility] | | | | + + + + + + + + + | Result panel 291 | + + + + + + + + + | | 2022-09-25 | [facility] | NEGATIVE | (missing) | (missing) | | (unavailable | 19:40:08 | [facility] | | | | + + + + + + + + + | Result panel 292 | + + + + + + + + + | | 2022-09-25 | [facility] | POSITIVE | (missing) | (missing) | | (unavailable | 19:40:08 | [facility] | | | | + + + + + + + + + | Result panel 293 | + + + + + + + + + | | 2022-09-25 | [facility] | NEGATIVE | (missing) | (missing) | | (unavailable | 19:40:08 | [facility] | | | | + + + + + + + + + | Result panel 294 | + + + + + +---------+ + + | | 2022-09-25 | [facility] | 1.025 | (missing) | (missing) | | (unavailable | 19:40:08 | [facility] | | | | + + + +---------+ + + + + | Result panel 295 | + + + + + + + + + | | 2022-09-25 | [facility] | NEGATIVE | (missing) | (missing) | | (unavailable | 19:40:08 | [facility] | | | | + + + + + + + + + | Result panel 296 | + + + + + +-------+ + + | | 2022-09-25 | [facility] | 5.5 | (missing) | (missing) | | (unavailable | 19:40:08 | [facility] | | | | + + + +-------+ + + + + | Result panel 297 | + + + + + +------+ + + | | 2022-09-25 | [facility] | 30 | (missing) | (missing) | | (unavailable | 19:40:08 | [facility] | | | | + + + +------+ + + + + | Result panel 298 | + + + + + + + + + | | 2022-09-25 | [facility] | NORMAL | (missing) | (missing) | | (unavailable | 19:40:08 | [facility] | | | | + + + + + + + + + | Result panel 299 | + + + + + + + + + | | 2022-09-25 | [facility] | NEGATIVE | (missing) | (missing) | | (unavailable | 19:40:08 | [facility] | | | | + + + + + + + + + | Result panel 300 | + + + + + + + + + | | 2022-09-25 | [facility] | NEGATIVE | (missing) | (missing) | | (unavailable | 19:40:08 | [facility] | | | | + + + + + + + + + | Result panel 301 | + + + + + + + + + | | 2022-09-25 | [facility] | POSITIVE | (missing) | (missing) | | (unavailable | 19:40:08 | [facility] | | | | + + + + + + + + + | Result panel 302 | + + + + + + + + + | | 2022-09-25 | [facility] | NEGATIVE | (missing) | (missing) | | (unavailable | 19:40:08 | [facility] | | | | + + + + + + + + + | Result panel 303 | + + + + + + + + + | | 2022-09-25 | [facility] | NEGATIVE | (missing) | (missing) | | (unavailable | 19:40:08 | [facility] | | | | + + + + + + + + + | Result panel 304 | + + + + + + + + + | | 2022-09-25 | [facility] | NEGATIVE | (missing) | (missing) | | (unavailable | 19:40:08 | [facility] | | | | + + + + + + + + + | Result panel 305 | + + + + + + + + + | | 2022-09-25 | [facility] | NEGATIVE | (missing) | (missing) | | (unavailable | 19:40:08 | [facility] | | | | + + + + + + + + + | Result panel 306 | + + + + + + + + + | | 2022-09-25 | [facility] | NEGATIVE | (missing) | (missing) | | (unavailable | 19:40:08 | [facility] | | | | + + + + + + + + + | Result panel 307 | + + + + + + + + + | | 2022-09-25 | [facility] | NEGATIVE | (missing) | (missing) | | (unavailable | 19:40:08 | [facility] | | | | + + + + + + + + + | Result panel 308 | + + + + + + + + + | | 2022-09-25 | [facility] | NEGATIVE | (missing) | (missing) | | (unavailable | 19:40:08 | [facility] | | | | + + + + + + + + + | Result panel 309 | + + + + + + + + + | | 2022-09-25 | [facility] | NEGATIVE | (missing) | (missing) | | (unavailable | 19:40:08 | [facility] | | | | + + + + + + + + + | Result panel 310 | + + + + + + + + + | | 2022-09-25 | [facility] | NEGATIVE | (missing) | (missing) | | (unavailable | 19:40:08 | [facility] | | | | + + + + + + + + + | Result panel 311 | + + + + + + + + + | | 2022-09-25 | [facility] | NEGATIVE | (missing) | (missing) | | (unavailable | 19:40:08 | [facility] | | | | + + + + + + + + + | Result panel 312 | + + + + + + + + + | | 2022-09-25 | [facility] | NEGATIVE | (missing) | (missing) | | (unavailable | 19:40:08 | [facility] | | | | + + + + + + + + + | Result panel 313 | + + + + + + + + + | | 2022-09-25 | [facility] | NEGATIVE | (missing) | (missing) | | (unavailable | 19:40:08 | [facility] | | | | + + + + + + + + + | Result panel 314 | + + + + + + + + + | | 2022-09-25 | [facility] | NEGATIVE | (missing) | (missing) | | (unavailable | 23:50:08 | [facility] | | | | + + + + + + + + + | Result panel 315 | + + + + + + + + + | | 2022-11-08 | [facility] | YELLOW | (missing) | (missing) | | (unavailable | 17:00:07 | [facility] | | | | + + + + + + + + + | Result panel 316 | + + + + + +---------+ + + | | 2022-11-08 | [facility] | CLEAR | (missing) | (missing) | | (unavailable | 17:00:07 | [facility] | | | | + + + +---------+ + + + + | Result panel 317 | + + + + + + + + + | | 2022-11-08 | [facility] | NEGATIVE | (missing) | (missing) | | (unavailable | 17:00:07 | [facility] | | | | + + + + + + + + + | Result panel 318 | + + + + + + + + + | | 2022-11-08 | [facility] | POSITIVE | (missing) | (missing) | | (unavailable | 17::07 | [facility] | | | | + + + + + + + + + | Result panel 319 | + + + + + +--------+ + + | | 2022-11-08 | [facility] | >=80 | (missing) | (missing) | | (unavailable | 17:00:07 | [facility] | | | | + + + +--------+ + + + + | Result panel 320 | + + + + + + + + + | | 2022-11-08 | [facility] | >=1.030 | (missing) | (missing) | | (unavailable | 17:00:07 | [facility] | | | | + + + + + + + + + | Result panel 321 | + + + + + + + + + | | 2022-11-08 | [facility] | NEGATIVE | (missing) | (missing) | | (unavailable | 17:00:07 | [facility] | | | | + + + + + + + + + | Result panel 322 | + + + + + +-------+ + + | | 2022-11-08 | [facility] | 6.0 | (missing) | (missing) | | (unavailable | 17:00:07 | [facility] | | | | + + + +-------+ + + + + | Result panel 323 | + + + + + + + + + | | 2022-11-08 | [facility] | NEGATIVE | (missing) | (missing) | | (unavailable | 17:00:07 | [facility] | | | | + + + + + + + + + | Result panel 324 | + + + + + +-------+ + + | | 2022-11-08 | [facility] | 1.0 | (missing) | (missing) | | (unavailable | 17:00:07 | [facility] | | | | + + + +-------+ + + + + | Result panel 325 | + + + + + + + + + | | 2022-11-08 | [facility] | NEGATIVE | (missing) | (missing) | | (unavailable | 17:00:07 | [facility] | | | | + + + + + + + + + | Result panel 326 | + + + + + + + + + | | 2022-11-08 | [facility] | NEGATIVE | (missing) | (missing) | | (unavailable | 17:00:07 | [facility] | | | | + + + + + + + + + | Result panel 327 | + + + + + + + + + | | 2022-11-08 | [facility] | YELLOW | (missing) | (missing) | | (unavailable | 17::07 | [facility] | | | | + + + + + + + + + | Result panel 328 | + + + + + +---------+ + + | | 2022-11-08 | [facility] | CLEAR | (missing) | (missing) | | (unavailable | 17:00:07 | [facility] | | | | + + + +---------+ + + + + | Result panel 329 | + + + + + + + + + | | 2022-11-08 | [facility] | NEGATIVE | (missing) | (missing) | | (unavailable | 17::07 | [facility] | | | | + + + + + + + + + | Result panel 330 | + + + + + + + + + | | 2022-11-08 | [facility] | POSITIVE | (missing) | (missing) | | (unavailable | 17::07 | [facility] | | | | + + + + + + + + + | Result panel 331 | + + + + + +--------+ + + | | 2022-11-08 | [facility] | >=80 | (missing) | (missing) | | (unavailable | 17:00:07 | [facility] | | | | + + + +--------+ + + + + | Result panel 332 | + + + + + + + + + | | 2022-11-08 | [facility] | >=1.030 | (missing) | (missing) | | (unavailable | 17:00:07 | [facility] | | | | + + + + + + + + + | Result panel 333 | + + + + + + + + + | | 2022-11-08 | [facility] | NEGATIVE | (missing) | (missing) | | (unavailable | 17:00:07 | [facility] | | | | + + + + + + + + + | Result panel 334 | + + + + + +-------+ + + | | 2022-11-08 | [facility] | 6.0 | (missing) | (missing) | | (unavailable | 17:00:07 | [facility] | | | | + + + +-------+ + + + + | Result panel 335 | + + + + + + + + + | | 2022-11-08 | [facility] | NEGATIVE | (missing) | (missing) | | (unavailable | 17::07 | [facility] | | | | + + + + + + + + + | Result panel 336 | + + + + + +-------+ + + | | 2022-11-08 | [facility] | 1.0 | (missing) | (missing) | | (unavailable | 17:00:07 | [facility] | | | | + + + +-------+ + + + + | Result panel 337 | + + + + + + + + + | | 2022-11-08 | [facility] | NEGATIVE | (missing) | (missing) | | (unavailable | 17:00:07 | [facility] | | | | + + + + + + + + + | Result panel 338 | + + + + + + + + + | | 2022-11-08 | [facility] | NEGATIVE | (missing) | (missing) | | (unavailable | 17:00:07 | [facility] | | | | + + + + + + + + + | Result panel 339 | + + + + + + + + + | | 2022-11-08 | [facility] | POSITIVE | (missing) | (missing) | | (unavailable | 17:00:07 | [facility] | | | | + + + + + + + + + | Result panel 340 | + + + + + + + + + | | 2022-11-08 | [facility] | POSITIVE | (missing) | (missing) | | (unavailable | 17:00:07 | [facility] | | | | + + + + + + + + + | Result panel 341 | + + + + + + + + + | | 2022-11-08 | [facility] | NEGATIVE | (missing) | (missing) | | (unavailable | 17:00:07 | [facility] | | | | + + + + + + + + + | Result panel 342 | + + + + + + + + + | | 2022-11-08 | [facility] | NEGATIVE | (missing) | (missing) | | (unavailable | 17:00:07 | [facility] | | | | + + + + + + + + + | Result panel 343 | + + + + + + + + + | | 2022-11-08 | [facility] | NEGATIVE | (missing) | (missing) | | (unavailable | 17:00:07 | [facility] | | | | + + + + + + + + + | Result panel 344 | + + + + + + + + + | | 2022-11-08 | [facility] | NEGATIVE | (missing) | (missing) | | (unavailable | ::07 | [facility] | | | | + + + + + + + + + | Result panel 345 | + + + + + + + + + | | 2022-11-08 | [facility] | NEGATIVE | (missing) | (missing) | | (unavailable | 17::07 | [facility] | | | | + + + + + + + + + | Result panel 346 | + + + + + + + + + | | 2022-11-08 | [facility] | NEGATIVE | (missing) | (missing) | | (unavailable | 17:00:07 | [facility] | | | | + + + + + + + + + | Result panel 347 | + + + + + + + + + | | 2022-11-08 | [facility] | NEGATIVE | (missing) | (missing) | | (unavailable | 17:00:07 | [facility] | | | | + + + + + + + + + | Result panel 348 | + + + + + + + + + | | 2022-11-08 | [facility] | POSITIVE | (missing) | (missing) | | (unavailable | 17:00:07 | [facility] | | | | + + + + + + + + + | Result panel 349 | + + + + + + + + + | | 2022-11-08 | [facility] | NEGATIVE | (missing) | (missing) | | (unavailable | 17:00:07 | [facility] | | | | + + + + + + + + + | Result panel 350 | + + + + + + + + + | | 2022-11-08 | [facility] | POSITIVE | (missing) | (missing) | | (unavailable | 17:00:07 | [facility] | | | | + + + + + + + + + | Result panel 351 | + + + + + + + + + | | 2022-11-08 | [facility] | NEGATIVE | (missing) | (missing) | | (unavailable | 17:00:07 | [facility] | | | | + + + + + + + + + | Result panel 352 | + + + + + +-------+ + + | | 2022-11-08 | [facility] | 6.6 | (missing) | (missing) | | (unavailable | 17:42:07 | [facility] | | | | + + + +-------+ + + + + | Result panel 353 | + + + + + +--------+ + + | | 2022-11-08 | [facility] | 5.11 | (missing) | (missing) | | (unavailable | 17:42:07 | [facility] | | | | + + + +--------+ + + + + | Result panel 354 | + + + + + +--------+ + + | | 2022-11-08 | [facility] | 14.4 | (missing) | (missing) | | (unavailable | 17:42:07 | [facility] | | | | + + + +--------+ + + + + | Result panel 355 | + + + + + +--------+ + + | | 2022-11-08 | [facility] | 40.1 | (missing) | (missing) | | (unavailable | 17:42:07 | [facility] | | | | + + + +--------+ + + + + | Result panel 356 | + + + + + +--------+ + + | | 2022-11-08 | [facility] | 78.6 | (missing) | (missing) | | (unavailable | 17:42:07 | [facility] | | | | + + + +--------+ + + + + | Result panel 357 | + + + + + +--------+ + + | | 2022-11-08 | [facility] | 28.1 | (missing) | (missing) | | (unavailable | 17:42:07 | [facility] | | | | + + + +--------+ + + + + | Result panel 358 | + + + + + +--------+ + + | | 2022-11-08 | [facility] | 35.8 | (missing) | (missing) | | (unavailable | 17:42:07 | [facility] | | | + + + +--------+ + + + + | Result panel 359 | + + + + + +--------+ + + | | 2022-11-08 | [facility] | 13.8 | (missing) | (missing) | | (unavailable | 17:42:07 | [facility] | | | | + + + +--------+ + + + + | Result panel 360 | + + + + + +-------+ + + | | 2022-11-08 | [facility] | 217 | (missing) | (missing) | | (unavailable | 17:42:07 | [facility] | | | | + + + +-------+ + + + + | Result panel 361 | + + + + + +--------+ + + | | 2022-11-08 | [facility] | 75.6 | (missing) | (missing) | | (unavailable | 17:42:07 | [facility] | | | | + + + +--------+ + + + + | Result panel 362 | + + + + + +--------+ + + | | 2022-11-08 | [facility] | 15.6 | (missing) | (missing) | | (unavailable | 17:42:07 | [facility] | | | + + + +--------+ + + + + | Result panel 363 | + + + + + +-------+ + + | | 2022-11-08 | [facility] | 8.2 | (missing) | (missing) | | (unavailable | 17:42:07 | [facility] | | | + + + +-------+ + + + + | Result panel 364 | + + + + + +-------+ + + | | 2022-11-08 | [facility] | 0.3 | (missing) | (missing) | | (unavailable | 17:42:07 | [facility] | | | | + + + +-------+ + + + + | Result panel 365 | + + + + + +-------+ + + | | 2022-11-08 | [facility] | 0.3 | (missing) | (missing) | | (unavailable | 17:42:07 | [facility] | | | | + + + +-------+ + + + + | Result panel 366 | + + + + + +-------+ + + | | 2022-11-08 | [facility] | 7.0 | (missing) | (missing) | | (unavailable | 17:42:07 | [facility] | | | | + + + +-------+ + + + + | Result panel 367 | + + + + + +-------+ + + | | 2022-11-08 | [facility] | 4.0 | (missing) | (missing) | | (unavailable | 17:42:07 | [facility] | | | | + + + +-------+ + + + + | Result panel 368 | + + + + + +-------+ + + | | 2022-11-08 | [facility] | 3.0 | (missing) | (missing) | | (unavailable | 17:42:07 | [facility] | | | + + + +-------+ + + + + | Result panel 369 | + + + + + +--------+ + + | | 2022-11-08 | [facility] | 1.33 | (missing) | (missing) | | (unavailable | 17:42:07 | [facility] | | | + + + +--------+ + + + + | Result panel 370 | + + + + + +-------+ + + | | 2022-11-08 | [facility] | 1.0 | (missing) | (missing) | | (unavailable | 17:42:07 | [facility] | | | + + + +-------+ + + + + | Result panel 371 | + + + + + +------+ + + | | 2022-11-08 | [facility] | 19 | (missing) | (missing) | | (unavailable | 17:42:07 | [facility] | | | | + + + +------+ + + + + | Result panel 372 | + + + + + +------+ + + | | 2022-11-08 | [facility] | 27 | (missing) | (missing) | | (unavailable | 17:42:07 | [facility] | | | | + + + +------+ + + + + | Result panel 373 | + + + + + +------+ + + | | 2022-11-08 | [facility] | 52 | (missing) | (missing) | | (unavailable | 17:42:07 | [facility] | | | | + + + +------+ + + + + | Result panel 374 | + + + + + +---------+ + + | | 2022-11-08 | [facility] | 0.765 | (missing) | (missing) | | (unavailable | 17:42:07 | [facility] | | | | + + + +---------+ + + + + | Result panel 375 | + + + + + +-----+ + + | | 2022-11-08 | [facility] | 0 | (missing) | (missing) | | (unavailable | 17:42:07 | [facility] | | | | + + + +-----+ + + + + | Result panel 376 | + + + + + +------+ + + | | 2022-11-08 | [facility] | // | (missing) | (missing) | | (unavailable | 17:42:07 | [facility] | | | | + + + +------+ + + + + | Result panel 377 | + + + + + +-------+---------+ + | | 2022-11-08 | [facility] | 2.7 | mg/dL | (missing) | | (unavailable | 17:42:07 | [facility] | | | | + + + +-------+---------+ + + + | Result panel 378 | + + + + + +------+ + + | | 2022-11-08 | [facility] | // | (missing) | (missing) | | (unavailable | 17:42:07 | [facility] | | | | + + + +------+ + + + + | Result panel 379 | + + + + + +------+ + + | | 2022-11-08 | [facility] | <3 | (missing) | (missing) | | (unavailable | 17:42:07 | [facility] | | | | + + + +------+ + + + + | Result panel 380 | + + + + + + + + + | | 2022-11-09 | [facility] | POSITIVE | (missing) | (missing) | | (unavailable | 21:57:07 | [facility] | | | | + + + + + + + + + | Result panel 381 | + + + + + + + + + | | 2022-11-09 | [facility] | NEGATIVE | (missing) | (missing) | | (unavailable | 21:57:07 | [facility] | | | | + + + + + + + + + | Result panel 382 | + + + + + + + + + | | 2022-11-09 | [facility] | NEGATIVE | (missing) | (missing) | | (unavailable | 21:57:07 | [facility] | | | | + + + + + + + + + | Result panel 383 | + + + + + + + + + | | 2022-11-09 | [facility] | NEGATIVE | (missing) | (missing) | | (unavailable | 21:57:07 | [facility] | | | | + + + + + + + + + | Result panel 384 | + + + + + +------+---------+ + | | 2022-11-11 | [facility] | 90 | mg/dL | (missing) | | (unavailable | 06:28:07 | [facility] | | | | + + + +------+---------+ + + + | Result panel 385 | + + + + + +------+---------+ + | | 2022-11-11 | [facility] | 13 | mg/dL | (missing) | | (unavailable | 06:28:07 | [facility] | | | | + + + +------+---------+ + + + | Result panel 386 | + + + + + +--------+---------+ + | | 2022-11-11 | [facility] | 0.78 | mg/dL | (missing) | | (unavailable | 06:28:07 | [facility] | | | | + + + +--------+---------+ + + + | Result panel 387 | + + + + + +-------+ + + | | 2022-11-11 | [facility] | 128 | (missing) | (missing) | | (unavailable | 06:28:07 | [facility] | | | | + + + +-------+ + + + + | Result panel 388 | + + + + + +---------+ + + | | 2022-11-11 | [facility] | 16.66 | (missing) | (missing) | | (unavailable | :28:07 | [facility] | | | | + + + +---------+ + + + + | Result panel 389 | + + + + + +-------+ + + | | 2022-11-11 | [facility] | 141 | (missing) | (missing) | | (unavailable | 06:28:07 | [facility] | | | | + + + +-------+ + + + + | Result panel 390 | + + + + + +-------+ + + | | 2022-11-11 | [facility] | 4.0 | (missing) | (missing) | | (unavailable | :28:07 | [facility] | | | | + + + +-------+ + + + + | Result panel 391 | + + + + + +-------+ + + | | 2022-11-11 | [facility] | 107 | (missing) | (missing) | | (unavailable | :07 | [facility] | | | | + + + +-------+ + + + + | Result panel 392 | + + + + + +------+ + + | | 2022-11-11 | [facility] | 28 | (missing) | (missing) | | (unavailable | ::07 | [facility] | | | | + + + +------+ + + + + | Result panel 393 | + + + + + +--------+ + + | | 2022-11-11 | [facility] | 10.0 | (missing) | (missing) | | (unavailable | 06:28:07 | [facility] | | | | + + + +--------+ + + + + | Result panel 394 | + + + + + +-------+---------+ + | | 2022-11-11 | [facility] | 8.6 | mg/dL | (missing) | | (unavailable | 06:28:07 | [facility] | | | | + + + +-------+---------+ + + + | Result panel 395 | + + + + + + + + + | | 2022-11-12 | [facility] | POSITIVE | (missing) | (missing) | | (unavailable | 09:57:07 | [facility] | | | | + + + + + + + + + | Result panel 396 | + + + + + + + + + | | 2022-11-12 | [facility] | POSITIVE | (missing) | (missing) | | (unavailable | 09:57:07 | [facility] | | | | + + + + + + + + + | Result panel 397 | + + + + + +-------+ + + | | 2022-11-19 | [facility] | 6.6 | (missing) | (missing) | | (unavailable | 08:50:07 | [facility] | | | | + + + +-------+ + + + + | Result panel 398 | + + + + + +--------+ + + | | 2022-11-19 | [facility] | 5.24 | (missing) | (missing) | | (unavailable | 08:50:07 | [facility] | | | | + + + +--------+ + + + + | Result panel 399 | + + + + + +--------+ + + | | 2022-11-19 | [facility] | 14.7 | (missing) | (missing) | | (unavailable | 08:50:07 | [facility] | | | | + + + +--------+ + + + + | Result panel 400 | + + + + + +--------+ + + | | 2022-11-19 | [facility] | 42.2 | (missing) | (missing) | | (unavailable | 08:50:07 | [facility] | | | | + + + +--------+ + + + + | Result panel 401 | + + + + + +--------+ + + | | 2022-11-19 | [facility] | 80.5 | (missing) | (missing) | | (unavailable | 08:50:07 | [facility] | | | | + + + +--------+ + + + + | Result panel 402 | + + + + + +--------+ + + | | 2022-11-19 | [facility] | 28.0 | (missing) | (missing) | | (unavailable | 08:50:07 | [facility] | | | | + + + +--------+ + + + + | Result panel 403 | + + + + + +--------+ + + | | 2022-11-19 | [facility] | 34.8 | (missing) | (missing) | | (unavailable | 08:50:07 | [facility] | | | | + + + +--------+ + + + + | Result panel 404 | + + + + + +--------+ + + | | 2022-11-19 | [facility] | 13.9 | (missing) | (missing) | | (unavailable | 08:50:07 | [facility] | | | | + + + +--------+ + + + + | Result panel 405 | + + + + + +-------+ + + | | 2022-11-19 | [facility] | 194 | (missing) | (missing) | | (unavailable | 08:50:07 | [facility] | | | | + + + +-------+ + + + + | Result panel 406 | + + + + + +--------+ + + | | 2022-11-19 | [facility] | 74.7 | (missing) | (missing) | | (unavailable | 08:50:07 | [facility] | | | | + + + +--------+ + + + + | Result panel 407 | + + + + + +--------+ + + | | 2022-11-19 | [facility] | 15.9 | (missing) | (missing) | | (unavailable | 08:50:07 | [facility] | | | | + + + +--------+ + + + + | Result panel 408 | + + + + + +-------+ + + | | 2022-11-19 | [facility] | 8.8 | (missing) | (missing) | | (unavailable | 08:50:07 | [facility] | | | | + + + +-------+ + + + + | Result panel 409 | + + + + + +-------+ + + | | 2022-11-19 | [facility] | 0.4 | (missing) | (missing) | | (unavailable | 08:50:07 | [facility] | | | | + + + +-------+ + + + + | Result panel 410 | + + + + + +-------+ + + | | 2022-11-19 | [facility] | 0.2 | (missing) | (missing) | | (unavailable | 08:50:07 | [facility] | | | | + + + +-------+ + + + + | Result panel 411 | + + + + + +------+---------+ + | | 2022-11-19 | [facility] | 90 | mg/dL | (missing) | | (unavailable | 08:50:07 | [facility] | | | | + + + +------+---------+ + + + | Result panel 412 | + + + + + +------+---------+ + | | 2022-11-19 | [facility] | 13 | mg/dL | (missing) | | (unavailable | 08:50:07 | [facility] | | | | + + + +------+---------+ + + + | Result panel 413 | + + + + + +--------+---------+ + | | 2022-11-19 | [facility] | 0.80 | mg/dL | (missing) | | (unavailable | 08:50:07 | [facility] | | | | + + + +--------+---------+ + + + | Result panel 414 | + + + + + +-------+ + + | | 2022-11-19 | [facility] | 127 | (missing) | (missing) | | (unavailable | 08:50:07 | [facility] | | | | + + + +-------+ + + + + | Result panel 415 | + + + + + +---------+ + + | | 2022-11-19 | [facility] | 16.25 | (missing) | (missing) | | (unavailable | 08:50:07 | [facility] | | | | + + + +---------+ + + + + | Result panel 416 | + + + + + +-------+ + + | | 2022-11-19 | [facility] | 143 | (missing) | (missing) | | (unavailable | 08:50:07 | [facility] | | | | + + + +-------+ + + + + | Result panel 417 | + + + + + +-------+ + + | | 2022-11-19 | [facility] | 3.4 | (missing) | (missing) | | (unavailable | 08:50:07 | [facility] | | | | + + + +-------+ + + + + | Result panel 418 | + + + + + +-------+ + + | | 2022-11-19 | [facility] | 103 | (missing) | (missing) | | (unavailable | 08:50:07 | [facility] | | | | + + + +-------+ + + + + | Result panel 419 | + + + + + +------+ + + | | 2022-11-19 | [facility] | 30 | (missing) | (missing) | | (unavailable | 08:50:07 | [facility] | | | | + + + +------+ + + + + | Result panel 420 | + + + + + +--------+ + + | | 2022-11-19 | [facility] | 13.4 | (missing) | (missing) | | (unavailable | 08:50:07 | [facility] | | | | + + + +--------+ + + + + | Result panel 421 | + + + + + +-------+---------+ + | | 2022-11-19 | [facility] | 9.0 | mg/dL | (missing) | | (unavailable | 08:50:07 | [facility] | | | | + + + +-------+---------+ + + + | Result panel 422 | + + + + + +-------+ + + | | 2022-11-19 | [facility] | 6.7 | (missing) | (missing) | | (unavailable | 08:50:07 | [facility] | | | | + + + +-------+ + + + + | Result panel 423 | + + + + + +-------+ + + | | 2022-11-19 | [facility] | 3.9 | (missing) | (missing) | | (unavailable | 08:50:07 | [facility] | | | | + + + +-------+ + + + + | Result panel 424 | + + + + + +-------+ + + | | 2022-11-19 | [facility] | 2.8 | (missing) | (missing) | | (unavailable | 08:50:07 | [facility] | | | | + + + +-------+ + + + + | Result panel 425 | + + + + + +--------+ + + | | 2022-11-19 | [facility] | 1.39 | (missing) | (missing) | | (unavailable | 08:50:07 | [facility] | | | + + + +--------+ + + + + | Result panel 426 | + + + + + +-------+ + + | | 2022-11-19 | [facility] | 1.3 | (missing) | (missing) | | (unavailable | 08:50:07 | [facility] | | | + + + +-------+ + + + + | Result panel 427 | + + + + + +------+ + + | | 2022-11-19 | [facility] | 25 | (missing) | (missing) | | (unavailable | 08:50:07 | [facility] | | | + + + +------+ + + + + | Result panel 428 | + + + + + +------+ + + | | 2022-11-19 | [facility] | 19 | (missing) | (missing) | | (unavailable | 08:50:07 | [facility] | | | + + + +------+ + + + + | Result panel 429 | + + + + + +------+ + + | | 2022-11-19 | [facility] | 52 | (missing) | (missing) | | (unavailable | 08:50:07 | [facility] | | | + + + +------+ + + + + | Result panel 430 | + + + + + +---------+ + + | | 2022-11-19 | [facility] | 0.227 | (missing) | (missing) | | (unavailable | 08:50:07 | [facility] | | | + + + +---------+ + + + + | Result panel 431 | + + + + + +-----+ + + | | 2022-11-19 | [facility] | 0 | (missing) | (missing) | | (unavailable | 08:50:07 | [facility] | | | | + + + +-----+ + + + + | Result panel 432 | + + + + + +------+ + + | | 2022-11-19 | [facility] | // | (missing) | (missing) | | (unavailable | 08:50:07 | [facility] | | | + + + +------+ + + + + | Result panel 433 | + + + + + +-------+---------+ + | | 2022-11-19 | [facility] | 2.7 | mg/dL | (missing) | | (unavailable | 08:50:07 | [facility] | | | | + + + +-------+---------+ + + + | Result panel 434 | + + + + + +------+ + + | | 2022-11-19 | [facility] | // | (missing) | (missing) | | (unavailable | 08:50:07 | [facility] | | | | + + + +------+ + + + + | Result panel 435 | + + + + + +-------+ + + | | 2022-11-19 | [facility] | 1.1 | (missing) | (missing) | | (unavailable | 08:50:07 | [facility] | | | + + + +-------+ + + + + | Result panel 436 | + + + + + +------+ + + | | 2022-11-19 | [facility] | // | (missing) | (missing) | | (unavailable | 08:50:07 | [facility] | | | | + + + +------+ + + + + | Result panel 437 | + + + + + +------+ + + | | 2022-11-19 | [facility] | <3 | (missing) | (missing) | | (unavailable | 08:50:07 | [facility] | | | + + + +------+ + + + + | Result panel 438 | + + + + + + + + + | | 2022-11-19 | [facility] | NEGATIVE | (missing) | (missing) | | (unavailable | 08:50:07 | [facility] | | | | + + + + + + + + + | Result panel 439 | + + + + + + + + + | | 2022-11-19 | [facility] | NEGATIVE | (missing) | (missing) | | (unavailable | 08:50:07 | [facility] | | | | + + + + + + + + + | Result panel 440 | + + + + + + + + + | | 2022-11-19 | [facility] | NEGATIVE | (missing) | (missing) | | (unavailable | 08:50:07 | [facility] | | | + + + + + + + + + | Result panel 441 | + + + + + + + + + | | 2022-11-19 | [facility] | NEGATIVE | (missing) | (missing) | | (unavailable | 08:50:07 | [facility] | | | | + + + + + + + + + | Result panel 442 | + + + + + + + + + | | 2022-11-19 | [facility] | POSITIVE | (missing) | (missing) | | (unavailable | 21:00:07 | [facility] | | | | + + + + + + + + + | Result panel 443 | + + + + + + + + + | | 2022-11-19 | [facility] | POSITIVE | (missing) | (missing) | | (unavailable | ::07 | [facility] | | | | + + + + + + + + + | Result panel 444 | + + + + + + + + + | | 2022-11-19 | [facility] | NEGATIVE | (missing) | (missing) | | (unavailable | ::07 | [facility] | | | | + + + + + + + + + | Result panel 445 | + + + + + + + + + | | 2022-11-19 | [facility] | NEGATIVE | (missing) | (missing) | | (unavailable | 21::07 | [facility] | | | | + + + + + + + + + | Result panel 446 | + + + + + + + + + | | 2022-11-19 | [facility] | NEGATIVE | (missing) | (missing) | | (unavailable | 21:00:07 | [facility] | | | | + + + + + + + + + | Result panel 447 | + + + + + + + + + | | 2022-11-19 | [facility] | NEGATIVE | (missing) | (missing) | | (unavailable | 21::07 | [facility] | | | | + + + + + + + + + | Result panel 448 | + + + + + + + + + | | 2022-11-19 | [facility] | NEGATIVE | (missing) | (missing) | | (unavailable | ::07 | [facility] | | | | + + + + + + + + + | Result panel 449 | + + + + + + + + + | | 2022-11-19 | [facility] | NEGATIVE | (missing) | (missing) | | (unavailable | 21:00:07 | [facility] | | | | + + + + + + + + + | Result panel 450 | + + + + + + + + + | | 2022-11-19 | [facility] | NEGATIVE | (missing) | (missing) | | (unavailable | 21:00:07 | [facility] | | | | + + + + + + + + + | Result panel 451 | + + + + + + + + + | | 2022-11-19 | [facility] | POSITIVE | (missing) | (missing) | | (unavailable | 21:00:07 | [facility] | | | | + + + + + + + + + | Result panel 452 | + + + + + + + + + | | 2022-11-19 | [facility] | NEGATIVE | (missing) | (missing) | | (unavailable | 21:00:07 | [facility] | | | | + + + + + + + + + | Result panel 453 | + + + + + + + + + | | 2022-11-19 | [facility] | NEGATIVE | (missing) | (missing) | | (unavailable | 21:00:07 | [facility] | | | | + + + + + + + + + | Result panel 454 | + + + + + + + + + | | 2022-11-19 | [facility] | NEGATIVE | (missing) | (missing) | | (unavailable | 21:00:07 | [facility] | | | | + + + + + + + + + | Result panel 455 | + + + + + +-------+ + + | | 2023-02-06 | [facility] | 7.6 | (missing) | (missing) | | (unavailable | 08:57:07 | [facility] | | | + + + +-------+ + + + + | Result panel 456 | + + + + + +--------+ + + | | 2023-02-06 | [facility] | 66.8 | (missing) | (missing) | | (unavailable | 08:57:07 | [facility] | | | + + + +--------+ + + + + | Result panel 457 | + + + + + +--------+ + + | | 2023-02-06 | [facility] | 20.7 | (missing) | (missing) | | (unavailable | 08:57:07 | [facility] | | | + + + +--------+ + + + + | Result panel 458 | + + + + + +--------+ + + | | 2023-02-06 | [facility] | 11.0 | (missing) | (missing) | | (unavailable | 08:57:07 | [facility] | | | + + + +--------+ + + + + | Result panel 459 | + + + + + +-------+ + + | | 2023-02-06 | [facility] | 1.0 | (missing) | (missing) | | (unavailable | 08:57:07 | [facility] | | | + + + +-------+ + + + + | Result panel 460 | + + + + + +-------+ + + | | 2023-02-06 | [facility] | 0.5 | (missing) | (missing) | | (unavailable | 08:57:07 | [facility] | | | | + + + +-------+ + + + + | Result panel 461 | + + + + + +------+---------+ + | | 2023-02-06 | [facility] | 93 | mg/dL | (missing) | | (unavailable | 08:57:07 | [facility] | | | | + + + +------+---------+ + + + | Result panel 462 | + + + + + +------+---------+ + | | 2023-02-06 | [facility] | 11 | mg/dL | (missing) | | (unavailable | 08:57:07 | [facility] | | | + + + +------+---------+ + + + | Result panel 463 | + + + + + +--------+---------+ + | | 2023-02-06 | [facility] | 0.77 | mg/dL | (missing) | | (unavailable | 08:57:07 | [facility] | | | + + + +--------+---------+ + + + | Result panel 464 | + + + + + +-------+ + + | | 2023-02-06 | [facility] | 128 | (missing) | (missing) | | (unavailable | 08:57:07 | [facility] | | | + + + +-------+ + + + + | Result panel 465 | + + + + + +---------+ + + | | 2023-02-06 | [facility] | 14.28 | (missing) | (missing) | | (unavailable | 08:57:07 | [facility] | | | | + + + +---------+ + + + + | Result panel 466 | + + + + + +--------+ + + | | 2023-02-06 | [facility] | 4.92 | (missing) | (missing) | | (unavailable | 08:57:07 | [facility] | | | + + + +--------+ + + + + | Result panel 467 | + + + + + +-------+ + + | | 2023-02-06 | [facility] | 141 | (missing) | (missing) | | (unavailable | 08:57:07 | [facility] | | | | + + + +-------+ + + + + | Result panel 468 | + + + + + +-------+ + + | | 2023-02-06 | [facility] | 3.4 | (missing) | (missing) | | (unavailable | 08:57:07 | [facility] | | | | + + + +-------+ + + + + | Result panel 469 | + + + + + +-------+ + + | | 2023-02-06 | [facility] | 105 | (missing) | (missing) | | (unavailable | 08:57:07 | [facility] | | | | + + + +-------+ + + + + | Result panel 470 | + + + + + +------+ + + | | 2023-02-06 | [facility] | 31 | (missing) | (missing) | | (unavailable | 08:57:07 | [facility] | | | + + + +------+ + + + + | Result panel 471 | + + + + + +-------+ + + | | 2023-02-06 | [facility] | 8.4 | (missing) | (missing) | | (unavailable | 08:57:07 | [facility] | | | + + + +-------+ + + + + | Result panel 472 | + + + + + +-------+---------+ + | | 2023-02-06 | [facility] | 8.6 | mg/dL | (missing) | | (unavailable | 08:57:07 | [facility] | | | | + + + +-------+---------+ + + + | Result panel 473 | + + + + + +-------+ + + | | 2023-02-06 | [facility] | 6.9 | (missing) | (missing) | | (unavailable | 08:57:07 | [facility] | | | | + + + +-------+ + + + + | Result panel 474 | + + + + + +-------+ + + | | 2023-02-06 | [facility] | 3.7 | (missing) | (missing) | | (unavailable | 08:57:07 | [facility] | | | | + + + +-------+ + + + + | Result panel 475 | + + + + + +-------+ + + | | 2023-02-06 | [facility] | 3.2 | (missing) | (missing) | | (unavailable | 08:57:07 | [facility] | | | + + + +-------+ + + + + | Result panel 476 | + + + + + +--------+ + + | | 2023-02-06 | [facility] | 1.16 | (missing) | (missing) | | (unavailable | 08:57:07 | [facility] | | | | + + + +--------+ + + + + | Result panel 477 | + + + + + +--------+ + + | | 2023-02-06 | [facility] | 13.7 | (missing) | (missing) | | (unavailable | 08:57:07 | [facility] | | | | + + + +--------+ + + + + | Result panel 478 | + + + + + +-------+ + + | | 2023-02-06 | [facility] | 0.8 | (missing) | (missing) | | (unavailable | 08:57:07 | [facility] | | | | + + + +-------+ + + + + | Result panel 479 | + + + + + +------+ + + | | 2023-02-06 | [facility] | 17 | (missing) | (missing) | | (unavailable | 08:57:07 | [facility] | | | | + + + +------+ + + + + | Result panel 480 | + + + + + +------+ + + | | 2023-02-06 | [facility] | 20 | (missing) | (missing) | | (unavailable | 08:57:07 | [facility] | | | | + + + +------+ + + + + | Result panel 481 | + + + + + +------+ + + | | 2023-02-06 | [facility] | 61 | (missing) | (missing) | | (unavailable | 08:57:07 | [facility] | | | | + + + +------+ + + + + | Result panel 482 | + + + + + +---------+ + + | | 2023-02-06 | [facility] | 0.793 | (missing) | (missing) | | (unavailable | 08:57:07 | [facility] | | | | + + + +---------+ + + + + | Result panel 483 | + + + + + +-----+ + + | | 2023-02-06 | [facility] | 0 | (missing) | (missing) | | (unavailable | 08:57:07 | [facility] | | | | + + + +-----+ + + + + | Result panel 484 | + + + + + +------+ + + | | 2023-02-06 | [facility] | // | (missing) | (missing) | | (unavailable | 08:57:07 | [facility] | | | | + + + +------+ + + + + | Result panel 485 | + + + + + +-------+---------+ + | | 2023-02-06 | [facility] | 2.2 | mg/dL | (missing) | | (unavailable | 08:57:07 | [facility] | | | | + + + +-------+---------+ + + + | Result panel 486 | + + + + + +------+ + + | | 2023-02-06 | [facility] | // | (missing) | (missing) | | (unavailable | 08:57:07 | [facility] | | | | + + + +------+ + + + + | Result panel 487 | + + + + + +--------+ + + | | 2023-02-06 | [facility] | <0.2 | (missing) | (missing) | | (unavailable | 08:57:07 | [facility] | | | | + + + +--------+ + + + + | Result panel 488 | + + + + + +--------+ + + | | 2023-02-06 | [facility] | 41.2 | (missing) | (missing) | | (unavailable | 08:57:07 | [facility] | | | | + + + +--------+ + + + + | Result panel 489 | + + + + + +------+ + + | | 2023-02-06 | [facility] | // | (missing) | (missing) | | (unavailable | 08:57:07 | [facility] | | | | + + + +------+ + + + + | Result panel 490 | + + + + + +------+ + + | | 2023-02-06 | [facility] | <3 | (missing) | (missing) | | (unavailable | 08:57:07 | [facility] | | | + + + +------+ + + + + | Result panel 491 | + + + + + +--------+ + + | | 2023-02-06 | [facility] | 83.7 | (missing) | (missing) | | (unavailable | 08:57:07 | [facility] | | | + + + +--------+ + + + + | Result panel 492 | + + + + + +-------+ + + | | 2023-02-06 | [facility] | 7.6 | (missing) | (missing) | | (unavailable | 08:57:07 | [facility] | | | | + + + +-------+ + + + + | Result panel 493 | + + + + + +--------+ + + | | 2023-02-06 | [facility] | 4.92 | (missing) | (missing) | | (unavailable | 08:57:07 | [facility] | | | | + + + +--------+ + + + + | Result panel 494 | + + + + + +--------+ + + | | 2023-02-06 | [facility] | 13.7 | (missing) | (missing) | | (unavailable | 08:57:07 | [facility] | | | + + + +--------+ + + + + | Result panel 495 | + + + + + +--------+ + + | | 2023-02-06 | [facility] | 41.2 | (missing) | (missing) | | (unavailable | 08:57:07 | [facility] | | | | + + + +--------+ + + + + | Result panel 496 | + + + + + +--------+ + + | | 2023-02-06 | [facility] | 83.7 | (missing) | (missing) | | (unavailable | 08:57:07 | [facility] | | | | + + + +--------+ + + + + | Result panel 497 | + + + + + +--------+ + + | | 2023-02-06 | [facility] | 27.7 | (missing) | (missing) | | (unavailable | 08:57:07 | [facility] | | | | + + + +--------+ + + + + | Result panel 498 | + + + + + +--------+ + + | | 2023-02-06 | [facility] | 27.7 | (missing) | (missing) | | (unavailable | 08:57:07 | [facility] | | | | + + + +--------+ + + + + | Result panel 499 | + + + + + +--------+ + + | | 2023-02-06 | [facility] | 33.1 | (missing) | (missing) | | (unavailable | 08:57:07 | [facility] | | | | + + + +--------+ + + + + | Result panel 500 | + + + + + +--------+ + + | | 2023-02-06 | [facility] | 14.1 | (missing) | (missing) | | (unavailable | 08:57:07 | [facility] | | | | + + + +--------+ + + + + | Result panel 501 | + + + + + +-------+ + + | | 2023-02-06 | [facility] | 198 | (missing) | (missing) | | (unavailable | 08:57:07 | [facility] | | | | + + + +-------+ + + + + | Result panel 502 | + + + + + +--------+ + + | | 2023-02-06 | [facility] | 66.8 | (missing) | (missing) | | (unavailable | 08:57:07 | [facility] | | | | + + + +--------+ + + + + | Result panel 503 | + + + + + +--------+ + + | | 2023-02-06 | [facility] | 20.7 | (missing) | (missing) | | (unavailable | 08:57:07 | [facility] | | | | + + + +--------+ + + + + | Result panel 504 | + + + + + +--------+ + + | | 2023-02-06 | [facility] | 11.0 | (missing) | (missing) | | (unavailable | 08:57:07 | [facility] | | | | + + + +--------+ + + + + | Result panel 505 | + + + + + +-------+ + + | | 2023-02-06 | [facility] | 1.0 | (missing) | (missing) | | (unavailable | 08:57:07 | [facility] | | | | + + + +-------+ + + + + | Result panel 506 | + + + + + +-------+ + + | | 2023-02-06 | [facility] | 0.5 | (missing) | (missing) | | (unavailable | 08:57:07 | [facility] | | | | + + + +-------+ + + + + | Result panel 507 | + + + + + +------+---------+ + | | 2023-02-06 | [facility] | 93 | mg/dL | (missing) | | (unavailable | 08:57:07 | [facility] | | | | + + + +------+---------+ + + + | Result panel 508 | + + + + + +--------+ + + | | 2023-02-06 | [facility] | 33.1 | (missing) | (missing) | | (unavailable | 08:57:07 | [facility] | | | | + + + +--------+ + + + + | Result panel 509 | + + + + + +------+---------+ + | | 2023-02-06 | [facility] | 11 | mg/dL | (missing) | | (unavailable | 08:57:07 | [facility] | | | | + + + +------+---------+ + + + | Result panel 510 | + + + + + +--------+---------+ + | | 2023-02-06 | [facility] | 0.77 | mg/dL | (missing) | | (unavailable | 08:57:07 | [facility] | | | | + + + +--------+---------+ + + + | Result panel 511 | + + + + + +-------+ + + | | 2023-02-06 | [facility] | 128 | (missing) | (missing) | | (unavailable | 08:57:07 | [facility] | | | | + + + +-------+ + + + + | Result panel 512 | + + + + + +---------+ + + | | 2023-02-06 | [facility] | 14.28 | (missing) | (missing) | | (unavailable | 08:57:07 | [facility] | | | | + + + +---------+ + + + + | Result panel 513 | + + + + + +-------+ + + | | 2023-02-06 | [facility] | 141 | (missing) | (missing) | | (unavailable | 08:57:07 | [facility] | | | | + + + +-------+ + + + + | Result panel 514 | + + + + + +-------+ + + | | 2023-02-06 | [facility] | 3.4 | (missing) | (missing) | | (unavailable | 08:57:07 | [facility] | | | | + + + +-------+ + + + + | Result panel 515 | + + + + + +-------+ + + | | 2023-02-06 | [facility] | 105 | (missing) | (missing) | | (unavailable | 08:57:07 | [facility] | | | | + + + +-------+ + + + + | Result panel 516 | + + + + + +------+ + + | | 2023-02-06 | [facility] | 31 | (missing) | (missing) | | (unavailable | 08:57:07 | [facility] | | | | + + + +------+ + + + + | Result panel 517 | + + + + + +-------+ + + | | 2023-02-06 | [facility] | 8.4 | (missing) | (missing) | | (unavailable | 08:57:07 | [facility] | | | | + + + +-------+ + + + + | Result panel 518 | + + + + + +-------+---------+ + | | 2023-02-06 | [facility] | 8.6 | mg/dL | (missing) | | (unavailable | 08:57:07 | [facility] | | | | + + + +-------+---------+ + + + | Result panel 519 | + + + + + +--------+ + + | | 2023-02-06 | [facility] | 14.1 | (missing) | (missing) | | (unavailable | 08:57:07 | [facility] | | | | + + + +--------+ + + + + | Result panel 520 | + + + + + +-------+ + + | | 2023-02-06 | [facility] | 6.9 | (missing) | (missing) | | (unavailable | 08:57:07 | [facility] | | | | + + + +-------+ + + + + | Result panel 521 | + + + + + +-------+ + + | | 2023-02-06 | [facility] | 3.7 | (missing) | (missing) | | (unavailable | 08:57:07 | [facility] | | | | + + + +-------+ + + + + | Result panel 522 | + + + + + +-------+ + + | | 2023-02-06 | [facility] | 3.2 | (missing) | (missing) | | (unavailable | 08:57:07 | [facility] | | | | + + + +-------+ + + + + | Result panel 523 | + + + + + +--------+ + + | | 2023-02-06 | [facility] | 1.16 | (missing) | (missing) | | (unavailable | 08:57:07 | [facility] | | | | + + + +--------+ + + + + | Result panel 524 | + + + + + +-------+ + + | | 2023-02-06 | [facility] | 0.8 | (missing) | (missing) | | (unavailable | 08:57:07 | [facility] | | | | + + + +-------+ + + + + | Result panel 525 | + + + + + +------+ + + | | 2023-02-06 | [facility] | 17 | (missing) | (missing) | | (unavailable | 08:57:07 | [facility] | | | | + + + +------+ + + + + | Result panel 526 | + + + + + +------+ + + | | 2023-02-06 | [facility] | 20 | (missing) | (missing) | | (unavailable | 08:57:07 | [facility] | | | | + + + +------+ + + + + | Result panel 527 | + + + + + +------+ + + | | 2023-02-06 | [facility] | 61 | (missing) | (missing) | | (unavailable | 08:57:07 | [facility] | | | | + + + +------+ + + + + | Result panel 528 | + + + + + +---------+ + + | | 2023-02-06 | [facility] | 0.793 | (missing) | (missing) | | (unavailable | 08:57:07 | [facility] | | | | + + + +---------+ + + + + | Result panel 529 | + + + + + +-----+ + + | | 2023-02-06 | [facility] | 0 | (missing) | (missing) | | (unavailable | 08:57:07 | [facility] | | | | + + + +-----+ + + + + | Result panel 530 | + + + + + +-------+ + + | | 2023-02-06 | [facility] | 198 | (missing) | (missing) | | (unavailable | 08:57:07 | [facility] | | | | + + + +-------+ + + + + | Result panel 531 | + + + + + +------+ + + | | 2023-02-06 | [facility] | // | (missing) | (missing) | | (unavailable | 08:57:07 | [facility] | | | | + + + +------+ + + + + | Result panel 532 | + + + + + +-------+---------+ + | | 2023-02-06 | [facility] | 2.2 | mg/dL | (missing) | | (unavailable | 08:57:07 | [facility] | | | | + + + +-------+---------+ + + + | Result panel 533 | + + + + + +------+ + + | | 2023-02-06 | [facility] | // | (missing) | (missing) | | (unavailable | 08:57:07 | [facility] | | | | + + + +------+ + + + + | Result panel 534 | + + + + + +--------+ + + | | 2023-02-06 | [facility] | <0.2 | (missing) | (missing) | | (unavailable | 08:57:07 | [facility] | | | | + + + +--------+ + + + + | Result panel 535 | + + + + + +------+ + + | | 2023-02-06 | [facility] | // | (missing) | (missing) | | (unavailable | 08:57:07 | [facility] | | | | + + + +------+ + + + + | Result panel 536 | + + + + + +------+ + + | | 2023-02-06 | [facility] | <3 | (missing) | (missing) | | (unavailable | 08:57:07 | [facility] | | | | + + + +------+ + + + + | Result panel 537 | + + + + + + + + + | | 2023-02-06 | [facility] | NEGATIVE | (missing) | (missing) | | (unavailable | 09:55:07 | [facility] | | | | + + + + + + + + + | Result panel 538 | + + + + + + + + + | | 2023-02-06 | [facility] | NEGATIVE | (missing) | (missing) | | (unavailable | 09:55:07 | [facility] | | | | + + + + + + + + + | Result panel 539 | + + + + + + + + + | | 2023-02-06 | [facility] | NEGATIVE | (missing) | (missing) | | (unavailable | 09:55:07 | [facility] | | | | + + + + + + + + + | Result panel 540 | + + + + + + + + + | | 2023-02-06 | [facility] | NEGATIVE | (missing) | (missing) | | (unavailable | 09:55:07 | [facility] | | | | + + + + + + + + + | Result panel 541 | + + + + + + + + + | | 2023-02-06 | [facility] | NEGATIVE | (missing) | (missing) | | (unavailable | 09:55:07 | [facility] | | | | + + + + + + + + + | Result panel 542 | + + + + + + + + + | | 2023-02-06 | [facility] | POSITIVE | (missing) | (missing) | | (unavailable | 09:55:07 | [facility] | | | | + + + + + + + + + | Result panel 543 | + + + + + + + + + | | 2023-02-06 | [facility] | NEGATIVE | (missing) | (missing) | | (unavailable | 09:55:07 | [facility] | | | | + + + + + + + + + | Result panel 544 | + + + + + + + + + | | 2023-02-06 | [facility] | NEGATIVE | (missing) | (missing) | | (unavailable | 09:55:07 | [facility] | | | | + + + + + + + + + | Result panel 545 | + + + + + + + + + | | 2023-02-06 | [facility] | NEGATIVE | (missing) | (missing) | | (unavailable | 09:55:07 | [facility] | | | | + + + + + + + + + | Result panel 546 | + + + + + + + + + | | 2023-02-06 | [facility] | POSITIVE | (missing) | (missing) | | (unavailable | 09:55:07 | [facility] | | | | + + + + + + + + + | Result panel 547 | + + + + + + + + + | | 2023-02-06 | [facility] | POSITIVE | (missing) | (missing) | | (unavailable | 09:55:07 | [facility] | | | | + + + + + + + + + | Result panel 548 | + + + + + + + + + | | 2023-02-06 | [facility] | NEGATIVE | (missing) | (missing) | | (unavailable | 09:55:07 | [facility] | | | | + + + + + + + + + | Result panel 549 | + + + + + + + + + | | 2023-02-06 | [facility] | NEGATIVE | (missing) | (missing) | | (unavailable | 09:55:07 | [facility] | | | | + + + + + + + + + | Result panel 550 | + + + + + + + + + | | 2023-02-06 | [facility] | NEGATIVE | (missing) | (missing) | | (unavailable | 09:55:07 | [facility] | | | | + + + + + + + + + | Result panel 551 | + + + + + + + + + | | 2023-02-06 | [facility] | NEGATIVE | (missing) | (missing) | | (unavailable | 09:55:07 | [facility] | | | | + + + + + + + + + | Result panel 552 | + + + + + + + + + | | 2023-02-06 | [facility] | NEGATIVE | (missing) | (missing) | | (unavailable | 09:55:07 | [facility] | | | | + + + + + + + + + | Result panel 553 | + + + + + + + + + | | 2023-02-06 | [facility] | NEGATIVE | (missing) | (missing) | | (unavailable | 09:55:07 | [facility] | | | | + + + + + + + + + | Result panel 554 | + + + + + + + + + | | 2023-02-06 | [facility] | NEGATIVE | (missing) | (missing) | | (unavailable | 09:55:07 | [facility] | | | | + + + + + + + + + | Result panel 555 | + + + + + + + + + | | 2023-02-06 | [facility] | POSITIVE | (missing) | (missing) | | (unavailable | 09:55:07 | [facility] | | | | + + + + + + + + + | Result panel 556 | + + + + + + + + + | | 2023-02-06 | [facility] | NEGATIVE | (missing) | (missing) | | (unavailable | 09:55:07 | [facility] | | | | + + + + + + + + + | Result panel 557 | + + + + + + + + + | | 2023-02-06 | [facility] | NEGATIVE | (missing) | (missing) | | (unavailable | 09:55:07 | [facility] | | | | + + + + + + + + + | Result panel 558 | + + + + + + + + + | | 2023-02-06 | [facility] | NEGATIVE | (missing) | (missing) | | (unavailable | 09:55:07 | [facility] | | | | + + + + + + + + + | Result panel 559 | + + + + + + + + + | | 2023-02-06 | [facility] | POSITIVE | (missing) | (missing) | | (unavailable | 09:55:07 | [facility] | | | | + + + + + + + + + | Result panel 560 | + + + + + + + + + | | 2023-02-06 | [facility] | POSITIVE | (missing) | (missing) | | (unavailable | 09:55:07 | [facility] | | | | + + + + + + + + + | Result panel 561 | + + + + + + + + + | | 2023-02-06 | [facility] | NEGATIVE | (missing) | (missing) | | (unavailable | 09:55:07 | [facility] | | | | + + + + + + + + + | Result panel 562 | + + + + + + + + + | | 2023-02-06 | [facility] | NEGATIVE | (missing) | (missing) | | (unavailable | 09:55:07 | [facility] | | | | + + + + + + + Social History No information. Vital Signs + + + +---------+ | date | measurement | value | units | + + + +---------+ | 2022-01-16 00:00 | BMI | 27.3 | kg/m2 | + + + +---------+ | 2022-01-16 00:00 | BP_diastolic | 83 | mmHg | + + + +---------+ | 2022-01-16 00:00 | BP_systolic | 132 | mmHg | + + + +---------+ | 2022-01-16 00:00 | heart_rate | 88 | /min | + + + +---------+ | 2022-01-16 00:00 | height_metric | 177.8 | cm | + + + +---------+ | 2022-01-16 00:00 | height_standard | 70 | in | + + + +---------+ | 2022-01-16 00:00 | o2_saturation | 100 | % | + + + +---------+ | 2022-01-16 00:00 | respiration_rate | 16 | /min | + + + +---------+ | 2022-01-16 00:00 | temperature_metric | 37 | C | | | | | | + + + +---------+ | 2022-01-16 00:00 | | 98.6 | F | | | temperature_standar | | | | | d | | | + + + +---------+ | 2022-01-16 00:00 | weight_metric | 86.2 | kg | + + + +---------+ | 2022-01-16 00:00 | weight_standard | 190.04 | lb | + + + +---------+ | 2022-01-23 00:00 | BMI | 27.3 | kg/m2 | + + + +---------+ | 2022-01-23 00:00 | BP_diastolic | 88 | mmHg | + + + +---------+ | 2022-01-23 00:00 | BP_systolic | 139 | mmHg | + + + +---------+ | 2022-01-23 00:00 | heart_rate | 105 | /min | + + + +---------+ | 2022-01-23 00:00 | height_metric | 177.8 | cm | + + + +---------+ | 2022-01-23 00:00 | height_standard | 70 | in | + + + +---------+ | 2022-01-23 00:00 | o2_saturation | 97 | % | + + + +---------+ | 2022-01-23 00:00 | respiration_rate | 16 | /min | + + + +---------+ | 2022-01-23 00:00 | temperature_metric | 36.94 | C | | | | | | + + + +---------+ | 2022-01-23 00:00 | | 98.5 | F | | | temperature_standar | | | | | d | | | + + + +---------+ | 2022-01-23 00:00 | weight_metric | 86.18 | kg | + + + +---------+ | 2022-01-23 00:00 | weight_standard | 189.99 | lb | + + + +---------+ | 2022-01-23 00:00 | weight_standard | 190 | lb | + + + +---------+ | 2022-03-25 00:00 | BMI | 27.3 | kg/m2 | + + + +---------+ | 2022-03-25 00:00 | height_metric | 177.8 | cm | + + + +---------+ | 2022-03-25 00:00 | height_standard | 70 | in | + + + +---------+ | 2022-03-25 00:00 | weight_metric | 86.18 | kg | + + + +---------+ | 2022-03-25 00:00 | weight_standard | 189.99 | lb | + + + +---------+ | 2022-03-25 00:00 | weight_standard | 190 | lb | + + + +---------+ | 2022-03-26 00:00 | BP_diastolic | 91 | mmHg | + + + +---------+ | 2022-03-26 00:00 | BP_systolic | 138 | mmHg | + + + +---------+ | 2022-03-26 00:00 | heart_rate | 73 | /min | + + + +---------+ | 2022-03-26 00:00 | o2_saturation | 9 | % | + + + +---------+ | 2022-03-26 00:00 | respiration_rate | 16 | /min | + + + +---------+ | 2022-03-26 00:00 | temperature_metric | 36.67 | C | | | | | | + + + +---------+ | 2022-03-26 00:00 | | 98 | F | | | temperature_standar | | | | | d | | | + + + +---------+ | 2022-05-04 00:00 | BMI | 27.3 | kg/m2 | + + + +---------+ | 2022-05-04 00:00 | height_metric | 177.8 | cm | + + + +---------+ | 2022-05-04 00:00 | height_standard | 70 | in | + + + +---------+ | 2022-05-04 00:00 | weight_metric | 86.18 | kg | + + + +---------+ | 2022-05-04 00:00 | weight_standard | 189.99 | lb | + + + +---------+ | 2022-05-04 00:00 | weight_standard | 190 | lb | + + + +---------+ | 2022-05-07 00:00 | BP_diastolic | 73 | mmHg | + + + +---------+ | 2022-05-07 00:00 | BP_systolic | 125 | mmHg | + + + +---------+ | 2022-05-07 00:00 | heart_rate | 84 | /min | + + + +---------+ | 2022-05-07 00:00 | o2_saturation | 97 | % | + + + +---------+ | 2022-05-07 00:00 | respiration_rate | 18 | /min | + + + +---------+ | 2022-05-07 00:00 | temperature_metric | 36.94 | C | | | | | | + + + +---------+ | 2022-05-07 00:00 | | 98.5 | F | | | temperature_standar | | | | | d | | | + + + +---------+ | 2022-06-12 00:00 | BMI | 25.9 | kg/m2 | + + + +---------+ | 2022-06-12 00:00 | height_metric | 177.8 | cm | + + + +---------+ | 2022-06-12 00:00 | height_standard | 70 | in | + + + +---------+ | 2022-06-12 00:00 | weight_metric | 82.02 | kg | + + + +---------+ | 2022-06-12 00:00 | weight_standard | 180.82 | lb | + + + +---------+ | 2022-06-12 00:00 | weight_standard | 180.83 | lb | + + + +---------+ | 2022-06-17 00:00 | BP_diastolic | 62 | mmHg | + + + +---------+ | 2022-06-17 00:00 | BP_systolic | 120 | mmHg | + + + +---------+ | 2022-06-17 00:00 | heart_rate | 63 | /min | + + + +---------+ | 2022-06-17 00:00 | o2_saturation | 99 | % | + + + +---------+ | 2022-06-17 00:00 | respiration_rate | 16 | /min | + + + +---------+ | 2022-06-17 00:00 | temperature_metric | 36.83 | C | | | | | | + + + +---------+ | 2022-06-17 00:00 | | 98.3 | F | | | temperature_standar | | | | | d | | | + + + +---------+ | 2022-06-19 00:00 | BMI | 25.8 | kg/m2 | + + + +---------+ | 2022-06-19 00:00 | height_metric | 177.8 | cm | + + + +---------+ | 2022-06-19 00:00 | height_standard | 70 | in | + + + +---------+ | 2022-06-19 00:00 | weight_metric | 81.65 | kg | + + + +---------+ | 2022-06-19 00:00 | weight_standard | 180 | lb | + + + +---------+ | 2022-06-19 00:00 | weight_standard | 180.01 | lb | + + + +---------+ | 2022-06-20 00:00 | BP_diastolic | 79 | mmHg | + + + +---------+ | 2022-06-20 00:00 | BP_systolic | 129 | mmHg | + + + +---------+ | 2022-06-20 00:00 | heart_rate | 89 | /min | + + + +---------+ | 2022-06-20 00:00 | o2_saturation | 98 | % | + + + +---------+ | 2022-06-20 00:00 | respiration_rate | 16 | /min | + + + +---------+ | 2022-06-20 00:00 | temperature_metric | 37.22 | C | | | | | | + + + +---------+ | 2022-06-20 00:00 | | 99 | F | | | temperature_standar | | | | | d | | | + + + +---------+ | 2022-09-25 00:00 | BMI | 27.6 | kg/m2 | + + + +---------+ | 2022-09-25 00:00 | height_metric | 177.8 | cm | + + + +---------+ | 2022-09-25 00:00 | height_standard | 70 | in | + + + +---------+ | 2022-09-25 00:00 | weight_metric | 87.4 | kg | + + + +---------+ | 2022-09-25 00:00 | weight_standard | 192.68 | lb | + + + +---------+ | 2022-09-27 00:00 | BP_diastolic | 71 | mmHg | + + + +---------+ | 2022-09-27 00:00 | BP_systolic | 113 | mmHg | + + + +---------+ | 2022-09-27 00:00 | heart_rate | 58 | /min | + + + +---------+ | 2022-09-27 00:00 | o2_saturation | 94 | % | + + + +---------+ | 2022-09-27 00:00 | respiration_rate | 16 | /min | + + + +---------+ | 2022-09-27 00:00 | temperature_metric | 36.67 | C | | | | | | + + + +---------+ | 2022-09-27 00:00 | | 98 | F | | | temperature_standar | | | | | d | | | + + + +---------+ | 2022-11-08 00:00 | BMI | 27.6 | kg/m2 | + + + +---------+ | 2022-11-08 00:00 | height_metric | 177.8 | cm | + + + +---------+ | 2022-11-08 00:00 | height_standard | 70 | in | + + + +---------+ | 2022-11-08 00:00 | weight_metric | 87.37 | kg | + + + +---------+ | 2022-11-08 00:00 | weight_metric | 87.38 | kg | + + + +---------+ | 2022-11-08 00:00 | weight_standard | 192.62 | lb | + + + +---------+ | 2022-11-08 00:00 | weight_standard | 192.63 | lb | + + + +---------+ | 2022-11-13 00:00 | BP_diastolic | 68 | mmHg | + + + +---------+ | 2022-11-13 00:00 | BP_systolic | 111 | mmHg | + + + +---------+ | 2022-11-13 00:00 | heart_rate | 86 | /min | + + + +---------+ | 2022-11-13 00:00 | o2_saturation | 97 | % | + + + +---------+ | 2022-11-13 00:00 | respiration_rate | 18 | /min | + + + +---------+ | 2022-11-13 00:00 | temperature_metric | 36.89 | C | | | | | | + + + +---------+ | 2022-11-13 00:00 | | 98.4 | F | | | temperature_standar | | | | | d | | | + + + +---------+ | 2022-11-19 00:00 | BMI | 27.6 | kg/m2 | + + + +---------+ | 2022-11-19 00:00 | height_metric | 177.8 | cm | + + + +---------+ | 2022-11-19 00:00 | height_standard | 70 | in | + + + +---------+ | 2022-11-19 00:00 | weight_metric | 87.37 | kg | + + + +---------+ | 2022-11-19 00:00 | weight_metric | 87.38 | kg | + + + +---------+ | 2022-11-19 00:00 | weight_standard | 192.62 | lb | + + + +---------+ | 2022-11-19 00:00 | weight_standard | 192.63 | lb | + + + +---------+ | 2022-11-20 00:00 | BP_diastolic | 53 | mmHg | + + + +---------+ | 2022-11-20 00:00 | BP_systolic | 114 | mmHg | + + + +---------+ | 2022-11-20 00:00 | heart_rate | 71 | /min | + + + +---------+ | 2022-11-20 00:00 | o2_saturation | 97 | % | + + + +---------+ | 2022-11-20 00:00 | respiration_rate | 16 | /min | + + + +---------+ | 2022-11-20 00:00 | temperature_metric | 36.83 | C | | | | | | + + + +---------+ | 2022-11-20 00:00 | | 98.3 | F | | | temperature_standar | | | | | d | | | + + + +---------+ | 2023-02-06 00:00 | BMI | 27.5 | kg/m2 | + + + +---------+ | 2023-02-06 00:00 | height_metric | 177.8 | cm | + + + +---------+ | 2023-02-06 00:00 | height_standard | 70 | in | + + + +---------+ | 2023-02-06 00:00 | weight_metric | 87.09 | kg | + + + +---------+ | 2023-02-06 00:00 | weight_standard | 192 | lb | + + + +---------+ | 2023-02-07 00:00 | BP_diastolic | 57 | mmHg | + + + +---------+ | 2023-02-07 00:00 | BP_systolic | 128 | mmHg | + + + +---------+ | 2023-02-07 00:00 | heart_rate | 63 | /min | + + + +---------+ | 2023-02-07 00:00 | o2_saturation | 97 | % | + + + +---------+ | 2023-02-07 00:00 | respiration_rate | 12 | /min | + + + +---------+ | 2023-02-07 00:00 | temperature_metric | 36.5 | C | | | | | | + + + +---------+ | 2023-02-07 00:00 | | 97.7 | F | | | temperature_standar | | | | | d | | | + + + +---------+ | 2023-02-09 00:00 | BMI | 27.6 | kg/m2 | + + + +---------+ | 2023-02-09 00:00 | BP_diastolic | 66 | mmHg | + + + +---------+ | 2023-02-09 00:00 | BP_systolic | 127 | mmHg | + + + +---------+ | 2023-02-09 00:00 | heart_rate | 73 | /min | + + + +---------+ | 2023-02-09 00:00 | height_metric | 177.8 | cm | + + + +---------+ | 2023-02-09 00:00 | height_standard | 70 | in | + + + +---------+ | 2023-02-09 00:00 | o2_saturation | 98 | % | + + + +---------+ | 2023-02-09 00:00 | respiration_rate | 20 | /min | + + + +---------+ | 2023-02-09 00:00 | temperature_metric | 36.83 | C | | | | | | + + + +---------+ | 2023-02-09 00:00 | | 98.3 | F | | | temperature_standar | | | | | d | | | + + + +---------+ | 2023-02-09 00:00 | weight_metric | 87.37 | kg | + + + +---------+ | 2023-02-09 00:00 | weight_metric | 87.38 | kg | + + + +---------+ | 2023-02-09 00:00 | weight_standard | 192.62 | lb | + + + +---------+ | 2023-02-09 00:00 | weight_standard | 192.63 | lb | + + + +---------+ | 2023-03-22 00:00 | BMI | 33.5 | kg/m2 | + + + +---------+ | 2023-03-22 00:00 | BP_diastolic | 77 | mmHg | + + + +---------+ | 2023-03-22 00:00 | BP_systolic | 145 | mmHg | + + + +---------+ | 2023-03-22 00:00 | heart_rate | 70 | /min | + + + +---------+ | 2023-03-22 00:00 | height_metric | 170.18 | cm | + + + +---------+ | 2023-03-22 00:00 | height_standard | 67 | in | + + + +---------+ | 2023-03-22 00:00 | o2_saturation | 97 | % | + + + +---------+ | 2023-03-22 00:00 | respiration_rate | 12 | /min | + + + +---------+ | 2023-03-22 00:00 | temperature_metric | 37 | C | | | | | | + + + +---------+ | 2023-03-22 00:00 | | 98.6 | F | | | temperature_standar | | | | | d | | | + + + +---------+ | 2023-03-22 00:00 | weight_metric | 97.07 | kg | + + + +---------+ | 2023-03-22 00:00 | weight_standard | 214 | lb | + + + +---------+"
--- OUTSIDE RECORDS SUMMARY | ~2023-03-28 | XMS | Continuity of Care Document ---
Demographics + + + | Address | [address] | | | [place] [address] | + + + | Preferred Language | Unknown | + + + | Marital Status | Never | + + + | Oriental Orthodox Affiliation | Unknown | + + + | Race | White | + + + | Ethnic Group | Not or | + + + Author + + + | Author | [facility] | + + + | Organization | [facility] | + + + | Address | [address] [facility] | | | [place] [address] | + + + | Phone | | + + + Care Team Providers + + + + | Care Cissp Name | Role | Phone | + [...] | 2022-05-07 00:00 | DIVALPROEX SODIUM | [facility] | + + + + | 2022-09-27 00:00 | DIVALPROEX SODIUM | [facility] | + + + + | 2022-11-13 00:00 | DIVALPROEX SODIUM | [facility] | + + + + | 2022-11-20 00:00 | DIVALPROEX SODIUM | [facility] | + + + + | 2023-02-07 00:00 | DIVALPROEX SODIUM | [facility] | + + + + | 2023-02-09 00:00 | DIVALPROEX SODIUM | [facility] | + + + + | 2022-09-27 00:00 | MONTELUKAST SODIUM | [facility] | + + + + | 2022-09-27 00:00 | LITHIUM CARBONATE | [facility] | + + + + | 2022-11-13 00:00 | LITHIUM CARBONATE | [facility] | + + + + | 2022-11-20 00:00 | LITHIUM CARBONATE | [facility] | + + + + | 2023-02-07 00:00 | LITHIUM CARBONATE | [facility] | + + + + | 2023-02-09 00:00 | LITHIUM CARBONATE | [facility] | + + + + | 2022-09-27 00:00 | OMEPRAZOLE | [facility] | + + + + | 2022-11-13 00:00 | OMEPRAZOLE | [facility] | + + + + | 2022-11-20 00:00 | OMEPRAZOLE | [facility] | + + + + | 2023-02-07 00:00 | OMEPRAZOLE | [facility] | + + + + | 2023-02-09 00:00 | OMEPRAZOLE | [facility] | + + + + | 2022-09-27 00:00 | OLANZAPINE | [facility] | + + + + | 2022-05-07 00:00 | OLANZAPINE | [facility] | + + + + | 2022-11-13 00:00 | OLANZAPINE | [facility] | + + + + | 2022-11-20 00:00 | OLANZAPINE | [facility] | + + + + | 2023-02-07 00:00 | OLANZAPINE | [facility] | + + + + | 2023-02-09 00:00 | OLANZAPINE | [facility] | + + + + | 2022-05-07 00:00 | OLANZAPINE | [facility] | + + + + | 2022-09-27 00:00 | OLANZAPINE | [facility] | + + + + | 2022-11-13 00:00 | OLANZAPINE | [facility] | + + + + | 2022-11-20 00:00 | OLANZAPINE | [facility] | + + + + | 2023-02-07 00:00 | OLANZAPINE | [facility] | + + + + | 2023-02-09 00:00 | OLANZAPINE | [facility] | + + + + | 2022-05-07 00:00 | SERTRALINE HCL | [facility] | + + + + | 2022-09-27 00:00 | SERTRALINE HCL | [facility] | + + + + | 2022-11-13 00:00 | SERTRALINE HCL | [facility] | + + + + | 2022-11-20 00:00 | SERTRALINE HCL | [facility] | + + + + | 2023-02-07 00:00 | SERTRALINE HCL | [facility] | + + + + | 2023-02-09 00:00 | SERTRALINE HCL | [facility] | + + + + | 2022-11-13 00:00 | OLANZAPINE | [facility] | + + + + | 2022-11-20 00:00 | OLANZAPINE | [facility] | + + + + | 2023-02-07 00:00 | OLANZAPINE | [facility] | + + + + | 2023-02-09 00:00 | OLANZAPINE | [facility] | + + + + | 2022-05-07 00:00 | RISPERIDONE | [facility] | + + + + | 2022-09-27 00:00 | TRAZODONE HCL | [facility] | + + + + | 2022-11-13 00:00 | TRAZODONE HCL | [facility] | + + + + | 2022-11-20 00:00 | TRAZODONE HCL | [facility] | + + + + | 2023-02-07 00:00 | TRAZODONE HCL | [facility] | + + + + | 2023-02-09 00:00 | TRAZODONE HCL | [facility] | + + + + | 2022-05-07 00:00 | TRAZODONE HCL | [facility] | + + + + | 2022-05-07 00:00 | TRAZODONE HCL | [facility] | + + + + | 2022-09-27 00:00 | TRAZODONE HCL | [facility] | + + + + | 2022-11-13 00:00 | TRAZODONE HCL | [facility] | + + + + | 2022-11-20 00:00 | TRAZODONE HCL | [facility] | + + + + | 2023-02-07 00:00 | TRAZODONE HCL | [facility] | + + + + | 2023-02-09 00:00 | TRAZODONE HCL | [facility] | + + + + | 2022-05-07 00:00 | PROPRANOLOL HCL | [facility] | + + + + | 2019-01-22 00:00 | PROMETHAZINE HCL | [facility] | + + + + | 2019-01-22 00:00 | PROMETHAZINE HCL | [facility] | + + + + | 2019-01-22 00:00 | PROMETHAZINE HCL | [facility] | + + + + | 2019-01-22 00:00 | PROMETHAZINE HCL | [facility] | + + + + | 2019-01-22 00:00 | PROMETHAZINE HCL | [facility] | + + + + | 2022-09-27 00:00 | HYDROXYZINE PAMOATE | [facility] | + + + + Problems + + + + | date | description | facility | + + + + | 2017-05-20 00:00 | Depression | [facility] | + + + + | 2017-05-20 00:00 | Depression | [facility] | + + + + | 2017-05-20 00:00 | Depression | [facility] | + + + + | 2017-05-20 00:00 | Depression | [facility] | + + + + | 2017-05-20 00:00 | Depression | [facility] | + + + + | 2017-05-20 00:00 | Suicidal ideation | [facility] | + + + + | 2017-05-20 00:00 | Suicidal ideation | [facility] | + + + + | 2017-05-20 00:00 | Suicidal ideation | [facility] | + + + + | 2017-05-20 00:00 | Suicidal ideation | [facility] | + + + + | 2017-05-20 00:00 | Suicidal ideation | [facility] | + + + + | 2018-06-15 00:00 | Encounter for medical | [facility] | | | screening examination | | + + + + | 2018-06-15 00:00 | Encounter for medical | [facility] | | | screening examination | | + + + + | 2018-06-15 00:00 | Encounter for medical | [facility] | | | screening examination | | + + + + | 2018-06-15 00:00 | Encounter for medical | [facility] | | | screening examination | | + + + + | 2018-06-15 00:00 | Encounter for medical | [facility] | | | screening examination | | + + + + | 2018-11-07 00:00 | Attempted suicide | [facility] | + + + + | 2018-11-07 00:00 | Attempted suicide | [facility] | + + + + | 2018-11-07 00:00 | Attempted suicide | [facility] | + + + + | 2018-11-07 00:00 | Attempted suicide | [facility] | + + + + | 2018-11-07 00:00 | Attempted suicide | [facility] | + + + + | 2019-01-29 00:00 | Abdominal pain | [facility] | + + + + | 2019-01-29 00:00 | Abdominal pain | [facility] | + + + + | 2019-01-29 00:00 | Abdominal pain | [facility] | + + + + | 2019-01-29 00:00 | Abdominal pain | [facility] | + + + + | 2019-01-29 00:00 | Abdominal pain | [facility] | + + + + | 2019-02-17 00:00 | Encounter for medical | [facility] | | | clearance for patient hold | | + + + + | 2019-02-17 00:00 | Encounter for medical | [facility] | | | clearance for patient hold | | + + + + | 2019-02-17 00:00 | Encounter for medical | [facility] | | | clearance for patient hold | | + + + + | 2019-02-17 00:00 | Encounter for medical | [facility] | | | clearance for patient hold | | + + + + | 2019-02-17 00:00 | Encounter for medical | [facility] | | | clearance for patient hold | | + + + + | 2019-02-26 00:00 | Dehydration | [facility] | + + + + | 2019-02-26 00:00 | Dehydration | [facility] | + + + + | 2019-02-26 00:00 | Dehydration | [facility] | + + + + | 2019-02-26 00:00 | Dehydration | [facility] | + + + + | 2019-02-26 00:00 | Dehydration | [facility] | + + + + | 2019-08-25 00:00 | Viral respiratory | [facility] | | | infection | | + + + + | 2019-08-25 00:00 | Viral respiratory | [facility] | | | infection | | + + + + | 2019-08-25 00:00 | Viral respiratory | [facility] | | | infection | | + + + + | 2019-08-25 00:00 | Viral respiratory | [facility] | | | infection | | + + + + | 2019-08-25 00:00 | Viral respiratory | [facility] | | | infection | | + + + + | 2022-01-16 00:00 | Gastroesophageal reflux | [facility] | | | disease | | + + + + | 2022-01-16 00:00 | Gastroesophageal reflux | [facility] | | | disease | | + + + + | 2022-01-16 00:00 | Gastroesophageal reflux | [facility] | | | disease | | + + + + | 2022-01-16 00:00 | Gastroesophageal reflux | [facility] | | | disease | | + + + + | 2022-01-16 00:00 | Gastroesophageal reflux | [facility] | | | disease | | + + + + | 2022-01-23 00:00 | Substance abuse | [facility] | + + + + | 2022-01-23 00:00 | Substance abuse | [facility] | + + + + | 2022-01-23 00:00 | Substance abuse | [facility] | + + + + | 2022-01-23 00:00 | Substance abuse | [facility] | + + + + | 2022-01-23 00:00 | Substance abuse | [facility] | + + + + | 2022-03-26 00:00 | 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 | | + + + + | 2022-03-26 00:00 | 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 | | + + + + | 2022-03-26 00:00 | 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 | | + + + + | 2022-03-26 00:00 | 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 | | + + + + | 2022-03-26 00:00 | 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 | | + + + + | 2022-06-12 00:00 | Polysubstance abuse | [facility] | + + + + | 2022-06-12 00:00 | Polysubstance abuse | [facility] | + + + + | 2022-06-12 00:00 | Polysubstance abuse | [facility] | + + + + | 2022-06-12 00:00 | Polysubstance abuse | [facility] | + + + + | 2022-06-20 00:00 | Psychosis | [facility] | + + + + | 2022-06-20 00:00 | Psychosis | [facility] | + + + + | 2022-06-20 00:00 | Psychosis | [facility] | + + + + | 2022-06-20 00:00 | Psychosis | [facility] | + + + + | 2022-11-08 00:00 | Hypokalemia | [facility] | + + + + | 2022-11-08 00:00 | Hypokalemia | [facility] | + + + + | 2022-11-08 00:00 | Hypokalemia | [facility] | + + + + | 2022-11-08 00:00 | Hypokalemia | [facility] | + + + + | 2022-11-10 00:00 | Infection due to severe | [facility] | | | acute respiratory syndrome | | | | coronavirus 2 (SARS-CoV-2) | | + + + + | 2022-11-10 00:00 | Infection due to severe | [facility] | | | acute respiratory syndrome | | | | coronavirus 2 (SARS-CoV-2) | | + + + + | 2022-11-10 00:00 | Infection due to severe | [facility] | | | acute respiratory syndrome | | | | coronavirus 2 (SARS-CoV-2) | | + + + + | 2022-11-10 00:00 | Infection due to severe | [facility] | | | acute respiratory syndrome | | | | coronavirus 2 (SARS-CoV-2) | | + + + + | 2022-11-19 00:00 | Schizophrenia | [facility] | + + + + | 2022-11-19 00:00 | Schizophrenia | [facility] | + + + + | 2022-11-19 00:00 | Schizophrenia | [facility] | + + + + | 2022-11-20 00:00 | Methamphetamine abuse | [facility] | + + + + | 2022-11-20 00:00 | Methamphetamine abuse | [facility] | + + + + | 2022-11-20 00:00 | Methamphetamine abuse | [facility] | + + + + | 2023-02-06 08:34 | CANNABIS USE, UNSPECIFIED, | [facility] | | | UNCOMPLICATED | | + + + + | 2023-02-06 08:34 | OTHER STIMULANT USE, | [facility] | | | UNSPECIFIED, UNCOMPLICATED | | + + + + | 2023-02-06 08:34 | SUICIDAL IDEATIONS | [facility] | + + + + | 2023-02-06 08:34 | OTHER LONGTERM (CURRENT) | [facility] | | | DRUG THERAPY | | + + + + | 2023-02-06 08:34 | ALLERGY STATUS TO | [facility] | | | PENICILLIN | | + + + + | 2023-02-07 00:00 | Drug use | [facility] | + + + + | 2023-02-07 00:00 | Drug use | [facility] | + + + + | 2023-02-09 00:00 | Malingering | [facility] | + + + + | 2023-02-09 00:00 | Malingering | [facility] | + + + + | [...] + + | 2023-02-09 12:59 | 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
--- OUTSIDE RECORDS SUMMARY | 2023-03-28 15:39 | XMS ---
PreManage Notification: MATHEUS WRIGHT Security Chronograph Operator Events No recent Security Events currently on file CRITERIA MET - 6 ED Visits in 6 Months - Group Notification - [facility] - 2 Visits in 30 Days CARE PROVIDERS -, Navdeep- Dentist: Pensions Retirement Plan Specialist [facility] PHONE: [phone] NICK EDOUARD Nurse Practitioner: Primary Care Current PHONE: [phone] Care Guidelines exist for the following facilities: [facility] ( 10/10/2020 ) Care History Medical/Surgical 11/10/2018 [facility] - CHW UNABLE TO CONTACT PATIENT- NO PCP - CHW SENT NO PCP LETTER TO PATIENT. - PLEASE CONTACT CHW AT [phone] IF PATIENT IS SEEN IN THE ED DURING BUSINESS HOURS. IF CHW IS AVAILABLE, CHW WILL MEET WITH PATIENT IN THE ED. Patrick VISIT COUNT (12 MO.) 10 [facility] 10 [place] [place] [facility] TOTAL 21 NOTE: Visits indicate total known visits. ED/UCC VISIT TRACKING (12 MO.) 03/28/2023 15:31 [place] TYPE: Emergency COMPLAINT: - CHEMICAL EXPOSURE 03/22/2023 19:[address] [facility] [place] TYPE: Emergency COMPLAINT: - NECK PAIN/ NO INJ DIAGNOSES: - Allergy status to penicillin - Cervicalgia - Schizophrenia, unspecified 02/09/2023 12:59 [facility] [place] TYPE: Emergency COMPLAINT: - MEDICAL CLEARNACE DIAGNOSES: - Allergy status to penicillin - Malingerer [conscious simulation] - Other terminal carman (current) drug therapy - Procedure and treatment not carried out because of patient's decision for other reasons - Unspecified abdominal pain 02/06/2023 08:34 [facility] [place] [place] TYPE: Emergency COMPLAINT: - MEDICAL CLEARANCE DIAGNOSES: - Allergy status to penicillin - Cannabis use, unspecified, uncomplicated - Other care home (current) drug therapy - Other stimulant use, unspecified, uncomplicated - Suicidal ideations 01/21/2023 09:36 [facility] [place] TYPE: Emergency DIAGNOSES: - Mental disorder, not otherwise specified - Overdose (Intentional) - suicidal - Suicide Attempt 01/14/2023 14:06 [facility] [place] TYPE: Emergency DIAGNOSES: - Acute pharyngitis, unspecified - sore throat 01/07/2023 07:06 [facility] [place] TYPE: Emergency DIAGNOSES: - Anxiety disorder, unspecified - Insomnia, unspecified - insomnia SOB - Shortness of Breath 12/17/2022 10:22 [facility] [place] TYPE: Emergency DIAGNOSES: - back pain 12/11/2022 14:46 [facility] [place] TYPE: Emergency DIAGNOSES: - Encounter for blood-alcohol and blood-drug test - Labs Only - urine test 12/09/2022 17:31 [facility] [place] TYPE: Emergency DIAGNOSES: - Cough, unspecified - poss Covid exposure - Shortness of Breath 12/04/2022 16:03 [facility] [place] TYPE: Emergency DIAGNOSES: - Acute pharyngitis, unspecified - Fever (9 Weeks To 74 Years) - sore throat 11/30/2022 16:43 [facility] [place] TYPE: Emergency DIAGNOSES: - Low back pain, unspecified - back inj - Back Injury 11/28/2022 11:[facility] DIAGNOSES: - Encounter for general adult medical examination without abnormal findings - Abdominal Pain - Blood In Stool - nausea,dehydrated 11/23/2022 07:43 [facility] [place] [facility]: [facility] DIAGNOSES: - Encounter for issue of repeat prescription - med refill - Medication Refill 11/19/2022 08:09 [place] [place] TYPE: Emergency COMPLAINT: - MEDICAL CLEARANCE DIAGNOSES: - Allergy status to penicillin - Contact with and (suspected) exposure to COVID-19 - Other terminal carman (current) drug therapy - Other stimulant abuse, uncomplicated - Schizophrenia, unspecified - Suicidal ideations 11/08/2022 16:40 [place] [place] TYPE: Emergency COMPLAINT: - MEDICAL CLEARANCE DIAGNOSES: - Allergy status to penicillin - COVID-19 - Hypokalemia - Other care home (current) drug therapy - Suicidal ideations 09/25/2022 18:17 [place] [place] TYPE: Emergency COMPLAINT: - SUICIDAL IDEATIONS DIAGNOSES: - Allergy status to penicillin - Contact with and (suspected) exposure to COVID-19 - Other care home (current) drug therapy - Other psychoactive substance [...] abuse, uncomplicated - Suicidal ideations 05/29/2022 20:35 [facility] DIAGNOSES: - Auditory hallucinations - Suicidal ideations - cahoots - Suicidal Plus 1 More Visit INPATIENT VISIT TRACKING (12 MO.) 09/27/2022 10:15 [facility] TYPE: Psychiatric Services DIAGNOSES: 0. Major depressive disorder, recurrent severe without psychotic features 1. Major depressive disorder, recurrent severe without psychotic features 2. Other seasonal allergic rhinitis 2. Personal history of suicidal behavior 2. Pervasive developmental disorder, unspecified 2. Suicidal ideations 2. Unsheltered homelessness 05/30/2022 19:47 [facility] [place] TYPE: Psychiatric Services DIAGNOSES: 0. Schizoaffective disorder, depressive type 1. Schizoaffective disorder, bipolar type 2. Alcohol dependence, uncomplicated 2. Cannabis abuse, uncomplicated 2. Dorsalgia, unspecified 2. Gastro-esophageal reflux disease without esophagitis 2. Homelessness unspecified 2. Homicidal ideations 2. Nicotine dependence, cigarettes, uncomplicated 2. Other stimulant dependence, uncomplicated 2. Suicidal ideations 2. Unspecified asthma, uncomplicated 05/07/2022 20:15 [facility] [place] TYPE: Psychiatric Services DIAGNOSES: 0. Schizoaffective [...] 2. Suicidal ideations 2. Unspecified asthma, uncomplicated [email or web address]
[2023-03-28 19:33] VITALS: BP 113/71
== END 2023-03-28 19:33 | disposition home or self-care (01) ==
LOC: ED 15:31
DX: F20.9 Schizophrenia, unspecified (principal); F15.10 Other stimulant abuse, uncomplicated; Z88.0 Allergy status to penicillin
CPT/HCPCS: 99284; A9270